=== PATIENT | female | born 1935 | race Two or more races ===

== ENCOUNTER 2021-02-09 20:56 | Inpatient (IN) | payer MEDICARE, OTHER ==
[~2021-02-09] VITALS: Ht 167.6 cm; Wt 54.0 kg
[2021-02-09] MEDS ORDERED: MORPHINE SULFATE 4 MG/1 ML DISP.SYRIN IV ONE (21:30)
[2021-02-09 21:40] LABS: HEMATOCRIT 32.5 % (31.2-41.9); MEAN CORPUSCULAR HEMOGLOBIN 24.7 uug (24.7-32.8); PLATELET COUNT (AUTO) 218 K/uL (179-408)
[2021-02-09 21:44] LABS: CREATININE 0.6 mg/dL (0.6-1.3); POTASSIUM 4.1 mmol/L (3.5-5.1)
[2021-02-09 21:49] LABS: BILIRUBIN,TOTAL 0.3 mg/dL (0.2-1.0); TOTAL PROTEIN, SERUM 7.4 g/dL (6.4-8.2)
[2021-02-09] MEDS ORDERED: MORPHINE SULFATE 4 MG/1 ML DISP.SYRIN ONE (21:53)
--- NOTE | 2021-02-09 22:00 | NUR ---
Patient in room 4a laying on gurny c/o right hip pain after mechanical fall. Patient is A/Ox3 but mostly farsi speaking. Patient denies head trauma. Swelling noted on right hip. Provide comfort and safety measures.
--- NOTE | 2021-02-09 22:11 | NUR ---
CALLED DR. CRUZ'S OFFICE, DR. CLARK.
--- NOTE | 2021-02-09 22:38 | NUR ---
Called [facility], Dr. Guerra paged.
[2021-02-09] MEDS ORDERED: ONDANSETRON 4 MG/2 ML VIAL IV PRN ×2 (23:00→23:45)
[2021-02-09] MEDS ORDERED: albuterol sulfate INH (23:20)
[2021-02-09] MEDS ORDERED: ONDA-104 PO (23:20)
[2021-02-09] MEDS ORDERED: LEVA0.6320 IH ×2 (23:20)
[2021-02-09] MEDS ORDERED: ALPR0.5T8 PO (23:20)
[2021-02-09] MEDS ORDERED: NA P133E RC (23:20)
[2021-02-09] MEDS ORDERED: METO25TA6 PO (23:20)
[2021-02-09] MEDS ORDERED: LATA7.5D OP (23:20)
[2021-02-09] MEDS ORDERED: BISA10SU61 RC (23:20)
[2021-02-09] MEDS ORDERED: HYDR-3972 PO (23:20)
[2021-02-09] MEDS ORDERED: DIPH25TA62 PO (23:20)
[2021-02-09] MEDS ORDERED: moxifloxacin RIGHTEYE (23:20)
[2021-02-09] MEDS ORDERED: OXYC-133 PO (23:20)
[2021-02-09] MEDS ORDERED: TRAM50TA2 PO (23:20)
[2021-02-09] MEDS ORDERED: ASPI81TA31 PO (23:20)
[2021-02-09] MEDS ORDERED: SERT100T PO (23:20)
[2021-02-09] MEDS ORDERED: EZET1TAB31 PO (23:20)
[2021-02-09] MEDS ORDERED: OMEP20CA15 PO (23:20)
[2021-02-09] MEDS ORDERED: LOSA50TA39 PO (23:20)
[2021-02-09 23:42] LABS: *BILIRUBIN,URIN NEGATIVE (NEGATIVE); *BLOOD, URINE 1+ (NEGATIVE); *CLARITY,URINE CLEAR (CLEAR); *COLOR,URINE YELLOW (YELLOW); *KETONES,URINE NEGATIVE (NEGATIVE); *UROBILINOGEN,URINE 0.2 E.U./dl (NORMAL); LEUKOCYTE ESTERASE ,URINE NEGATIVE (NEGATIVE); NITRITE, URINE NEGATIVE (NEGATIVE); UGLUCOSE NEGATIVE (NEGATIVE)
[2021-02-09] MEDS ORDERED: HYDROCODONE/APAP 5-325MG TABLET PO PRN (23:45)
[2021-02-09] MEDS ORDERED: MAGNESIUM HYDROXIDE 30 ML LIQUID UDC PO PRN (23:45)
[2021-02-09] MEDS ORDERED: MORPHINE SULFATE 2 MG/1 ML DISP.SYRIN IV PRN (23:45)
[2021-02-09] MEDS ORDERED: Z GUARD REMEDY PASTE 57 GM TUBE TOP PRN (23:45)
[2021-02-09] MEDS ORDERED: IV D5 1/2 NS 1000 ML 1,000 ML IV PRN (23:45)
[2021-02-09] MEDS ORDERED: ACETAMINOPHEN 325 MG TABLET PO PRN (23:45)
[2021-02-09] MEDS: MORPHINE SULFATE 2 MG/1 ML DISP.SYRIN IV PRN (23:46)
[2021-02-09 23:55] LABS: BACTERIA,URINE NONE SEEN /HPF (NONE SEEN); SQUAMOUS EPITHELIAL CELL,UR FEW /HPF (NONE SEEN); WBC,URINE 0-3 /HPF (0-3)
--- NOTE | 2021-02-10 01:30 | NUR ---
ERMD made aware of SBP in the 165 to 170.
[2021-02-10] MEDS: LOSARTAN POTASSIUM 50 MG TABLET PO SCH ×2 (01:46→08:24)
[2021-02-10] MEDS ORDERED: LOSARTAN POTASSIUM 50 MG TABLET ONE (01:49)
--- NOTE | 2021-02-10 02:18 | NUR ---
Transfered to 3rd floor Med surg via [facility].
[2021-02-10 02:30] VITALS: BP 170/77
--- NOTE | 2021-02-10 02:30 | NUR ---
admitted this 85 y.o. lady from er via [facility],alert,orientedx4, able to make needs known, no acute distress noted.admission care done, iv site on left ac patent and no signs of infiltration .repositioned for comfort.oral care rendered.skin clear.
[2021-02-10] MEDS: MORPHINE SULFATE 2 MG/1 ML DISP.SYRIN IV PRN ×2 (02:33→15:59)
--- NOTE | 2021-02-10 03:03 | NUR ---
relief afforded with morphine 2 mg iv given.requested to let her rest and sleep, getting irritable during assessment and interview process, kept npo .
[2021-02-10 04:31] VITALS: BP 188/77
--- NOTE | 2021-02-10 05:02 | NUR ---
dr vazquez to carina pt in am
[2021-02-10] MEDS: PANTOPRAZOLE SODIUM 40 MG TABLET.DR PO SCH (07:00)
[2021-02-10 07:04] LABS: MEAN CORPUSCULAR HEMOGLOBIN 25.1 uug (24.7-32.8); MEAN CORPUSCULAR VOLUME 77.3 fL (75.5-95.3); PLATELET COUNT (AUTO) 205 K/uL (179-408)
[2021-02-10 07:18] LABS: CREATININE 0.7 mg/dL (0.6-1.3); MAGNESIUM 1.7 mg/dL (1.8-2.4); PHOSPHOROUS 3.4 mg/dL (2.5-4.9)
[2021-02-10 07:28] LABS: THYROID STIMULATING HORMONE 0.676 mIU/mL (0.358-3.740)
[2021-02-10] MEDS ORDERED: METOPROLOL TARTRATE 25 MG TABLET PO SCH (09:00)
[2021-02-10] MEDS: MAGNESIUM SULFATE/D5W 100 ML IV SCH ×2 (09:04→10:08)
[2021-02-10] MEDS ORDERED: VANCOMYCIN 1000 MG VIAL ONE (11:13)
[2021-02-10] MEDS ORDERED: POLYMYXIN B SULFATE 500,000 UNITS VIAL ONE (11:13)
[2021-02-10] MEDS ORDERED: BUPIVACAINE 0.25% 30 ML VIAL ONE (11:14)
[2021-02-10] MEDS ORDERED: MIDAZOLAM HCL 2 MG/2 ML VIAL ONE (11:19)
[2021-02-10] MEDS ORDERED: FENTANYL CITRATE 250 MCG/5 ML AMPUL ONE (11:19)
[2021-02-10] MEDS ORDERED: ROCURONIUM BROMIDE 50 MG/5 ML VIAL ONE (11:20)
[2021-02-10 11:28] VITALS: BP 120/51
[2021-02-10] MEDS ORDERED: CLONIDINE-TTS 1 PATCH TD SCH (11:30)
--- NOTE | 2021-02-10 11:37 | NUR ---
pt went to or via bed for surgery in stable condition
[2021-02-10] MEDS ORDERED: PROPOFOL 200 MG/20 ML BOTTLE IV ONE (13:18)
[2021-02-10] MEDS ORDERED: LIDOCAINE-MPF 2% 5 ML VIAL IJ ONE (13:18)
[2021-02-10] MEDS ORDERED: NEOSTIGMINE METHYLSULFATE 10 MG/10 ML VIAL IV ONE (13:18)
[2021-02-10] MEDS ORDERED: SEVOFLURANE 250 ML BOTTLE IH ONE (13:18)
[2021-02-10] MEDS ORDERED: GLYCOPYRROLATE 0.2 MG/ML VIAL IJ ONE (13:18)
[2021-02-10] MEDS ORDERED: ONDANSETRON 4 MG/2 ML VIAL IV ONE (13:18)
[2021-02-10] MEDS ORDERED: CEFAZOLIN 1 G VIAL IM ONE (13:18)
[2021-02-10] MEDS ORDERED: METOCLOPRAMIDE HCL 10 MG/2 ML VIAL IV ONE (13:18)
[2021-02-10] MEDS ORDERED: POTASSIUM CHLORIDE 20 MEQ in IV D5 1/2 NS 1000 ML 1,000 ML IV PRN (14:00)
[2021-02-10] MEDS ORDERED: IV D5W-0.45% NS +20 KCL 1,000 ML IV ONE (14:02)
--- NOTE | 2021-02-10 14:37 | NUR ---
pt received back from surgery via bed in stable condition.
[2021-02-10 15:00] VITALS: BP 162/62
[2021-02-10] MEDS: CEFAZOLIN 1 G in IV DEXTROSE 5% 50 ML IV SCH (19:52)
[2021-02-10 20:34] VITALS: BP 116/51
[2021-02-10] MEDS: HYDROCODONE/APAP 5-325MG TABLET PO PRN (21:43)
[2021-02-11] MEDS: CEFAZOLIN 1 G in IV DEXTROSE 5% 50 ML IV SCH (04:01)
[2021-02-11 04:43] VITALS: BP 108/52
[2021-02-11 07:21] LABS: HEMATOCRIT 24.4 % (31.2-41.9)
--- NOTE | 2021-02-11 07:56 | NUR ---
Patient awake in bed. On 1L O2 via NC. No signs of acute distress. IV access on left AC #20 heplock. Call light within reach. Bed alarm on. Will continue to monitor.
[2021-02-11] MEDS: HYDROCODONE/APAP 5-325MG TABLET PO PRN ×2 (08:43→17:11)
[2021-02-11] MEDS ORDERED: LOSARTAN POTASSIUM 50 MG TABLET PO SCH (09:00)
[2021-02-11] MEDS ORDERED: BISACODYL 10 MG SUPP.RECT RC PRN (10:30)
[2021-02-11] MEDS ORDERED: ALPRAZOLAM 0.5 MG TABLET PO PRN (10:30)
[2021-02-11] MEDS: ENOXAPARIN SODIUM 40 MG/0.4 ML DISP.SYRIN SQ SCH (11:14)
[2021-02-11 11:41] VITALS: BP_SYST 112; BP_SYST 130; BP_DIAS 49; BP_DIAS 70
[2021-02-11 16:48] VITALS: BP 115/51
[2021-02-11 20:29] VITALS: BP 113/57
[2021-02-11] MEDS: LATANOPROST OPHT DROP 2.5 ML BOTTLE OP SCH (21:33)
[2021-02-11] MEDS: diphenhydrAMINE 25 MG CAP PO PRN (22:43)
[2021-02-12 04:00] VITALS: BP 140/64
--- NOTE | 2021-02-12 06:45 | NUR ---
Shift End Report: VS stable. No s/s of respiratory distress. Tolerated O2 @ 1L/min. No complaint presented all night. Continue current plan of care. Slept well.
[2021-02-12 07:16] LABS: MEAN CORPUSCULAR VOLUME 75.8 fL (75.5-95.3); PLATELET COUNT (AUTO) 113 K/uL (179-408)
[2021-02-12 07:28] LABS: BILIRUBIN,TOTAL 0.4 mg/dL (0.2-1.0); CREATININE 0.6 mg/dL (0.6-1.3); MAGNESIUM 1.7 mg/dL (1.8-2.4); POTASSIUM 4.5 mmol/L (3.5-5.1); TOTAL PROTEIN, SERUM 5.8 g/dL (6.4-8.2)
[2021-02-12] MEDS: ASPIRIN 81 MG TAB.CHEW PO SCH (08:21)
[2021-02-12] MEDS: SERTRALINE HCL 100 MG TABLET PO SCH (08:21)
[2021-02-12] MEDS: ENOXAPARIN SODIUM 40 MG/0.4 ML DISP.SYRIN SQ SCH (08:22)
[2021-02-12] MEDS: MAGNESIUM OXIDE 400 MG TABLET PO ONE ×2 (09:45→12:36)
[2021-02-12 11:36] VITALS: BP 141/80
[2021-02-12] MEDS ORDERED: ACETAMINOPHEN 325 MG TABLET PO PRN (12:30)
[2021-02-12 15:25] VITALS: BP 144/62
--- NOTE | 2021-02-12 18:34 | NUR ---
End of shift note Patient refuse blood transfusion today. MD [place] and family agree to repeat CBC tomorrow and do transfusion. Patient refuse medication in the morning. Able to take replacement magnesium 800mg tablet for Mg 1.7. will continue monitor
[2021-02-12 20:04] VITALS: BP 122/60
--- NOTE | 2021-02-12 20:10 | NUR ---
RECEIVED PATIENT IN BED ALERT AND AWAKE WITH 1 L/M OF O2 VIA NC. CALL LIGHT WITHIN REACH. WILL CONTINUE TO MONITOR.
[2021-02-12] MEDS: LATANOPROST OPHT DROP 2.5 ML BOTTLE OP SCH (21:11)
--- NOTE | 2021-02-12 23:29 | NUR ---
LAB AND BLOOD BANK OFFERED TO DRAW TYPE AND SCREEN AGAIN BUT PATIENT REFUSED. SHE AGREED TO ALLOW THE DRAW IN AM. TYPE AND SCREEN RESCHEDULE FOR AM.
[2021-02-13] VITALS (10 sets, daily range): BP systolic 100–155; BP diastolic 55–79
[2021-02-13 07:13] LABS: MEAN CORPUSCULAR HEMOGLOBIN 24.7 uug (24.7-32.8); MEAN CORPUSCULAR VOLUME 76.1 fL (75.5-95.3); PLATELET COUNT (AUTO) 143 K/uL (179-408)
[2021-02-13 07:14] LABS: CARBON DIOXIDE 28 mmol/L (21-32); CHLORIDE 96 mmol/L (98-107); CREATININE 0.5 mg/dL (0.6-1.3); GLUCOSE 104 mg/dL (74-106); MAGNESIUM 1.8 mg/dL (1.8-2.4); PHOSPHOROUS 3.1 mg/dL (2.5-4.9); POTASSIUM 4.2 mmol/L (3.5-5.1); UREA NITROGEN, BLOOD 8 mg/dL (7-18)
[2021-02-13 07:17] LABS: HEMATOCRIT 20.9 % (31.2-41.9)
[2021-02-13] MEDS: ENOXAPARIN SODIUM 40 MG/0.4 ML DISP.SYRIN SQ SCH (08:06)
[2021-02-13] MEDS: SERTRALINE HCL 100 MG TABLET PO SCH (08:06)
[2021-02-13] MEDS: ASPIRIN 81 MG TAB.CHEW PO SCH (08:06)
[2021-02-13] MEDS: HYDROCODONE/APAP 5-325MG TABLET PO PRN ×2 (14:25→20:13)
[2021-02-13 14:41] LABS: EOSINOPHILS % (MANUAL) 2 % (0-8); LYMPHOCYTES % (MANUAL) 12 % (20-40); MONOCYTES % (MANUAL) 7 % (2-10); NEUTROPHILS % (MANUAL) 79 % (42-75)
[2021-02-13] MEDS: LATANOPROST OPHT DROP 2.5 ML BOTTLE OP SCH (20:13)
--- NOTE | 2021-02-13 20:15 | NUR ---
RECEIVED PATIENT AWAKE IN BED. A/O X3. FARSI SPEAKING WITH MINIMAL [place], BUT ABLE TO MAKE NEEDS KNOWN. PATIENT VERBALIZED SHE IS AWARE OF BLOOD TRANSFUSION. CONSENT SIGNED IN CHART. VS WNL. PATIENT C/O PAIN IN RIGHT HIP, RADIATING TO LEFT HIP. PATIENT GIVEN NORCO 1 TAB PO PRN FOR PAIN. ICE APPLIED FOR ADDITIONAL PAIN DISCOMFORT. DRESSING NOTED TO RIGHT HIP, C/D/I. CALL LIGHT IN REACH. ALL NEEDS ATTENDED. WILL CONTINUE TO MONITOR AND ASSESS.
--- NOTE | 2021-02-13 20:30 | NUR ---
1 UNIT OF BLOOD STARTED. INFUSING TO RIGHT FA #22 GAUGE. VS WNL. AFEBRILE. CALL LIGHT IN REACH. ALL NEEDS ATTENDED. WILL CONTINUE TO MONITOR AND ASSESS.
--- NOTE | 2021-02-13 20:46 | NUR ---
NO TRANSFUSION REACTION NOTED. INFUSING WELL. PATIENT AWAKE IN BED, WATCHING TV. NO SOB NOTED OR C/O. WILL CONTINUE TO MONITOR AND ASSESS. CALL LIGHT IN REACH.
--- NOTE | 2021-02-13 23:36 | NUR ---
BLOOD TRANSFUSION COMPLETED. VS WNL. NO RESP. DISTRESS NOTED. INFUSED WELL. NO REACTION NOTED. WILL CONTINUE TO MONITOR AND ASSESS.
[2021-02-14 05:37] VITALS: BP 155/66
[2021-02-14 06:37] LABS: HEMATOCRIT 24.8 % (31.2-41.9); PLATELET COUNT (AUTO) 168 K/uL (179-408)
[2021-02-14 06:58] LABS: CREATININE 0.6 mg/dL (0.6-1.3); MAGNESIUM 1.9 mg/dL (1.8-2.4); PHOSPHOROUS 3.8 mg/dL (2.5-4.9); POTASSIUM 4.1 mmol/L (3.5-5.1); URIC ACID 2.3 mg/dL (2.6-6.0)
--- NOTE | 2021-02-14 07:15 | NUR ---
PATIENT IN BED SLEEPING IN STABLE CONDITION. NO S/S OF ANY SOB, PAIN OR DISCOMFORT NOTED AT THIS TIME, ROBERTS CATHETER DRAINING WELL. CALL LIGHT AND BELONGINGS WITHIN REACH WILL CONTINUE TO MONITOR.
[2021-02-14 07:27] LABS: THYROID STIMULATING HORMONE 1.083 mIU/mL (0.358-3.740)
[2021-02-14] MEDS: ENOXAPARIN SODIUM 40 MG/0.4 ML DISP.SYRIN SQ SCH (08:39)
[2021-02-14] MEDS: ASPIRIN 81 MG TAB.CHEW PO SCH (08:39)
[2021-02-14] MEDS: SERTRALINE HCL 100 MG TABLET PO SCH (08:39)
[2021-02-14] MEDS: HYDROCODONE/APAP 5-325MG TABLET PO PRN ×2 (09:29→16:10)
[2021-02-14 11:36] VITALS: BP 135/68
[2021-02-14] MEDS: MORPHINE SULFATE 2 MG/1 ML DISP.SYRIN IV PRN (13:01)
[2021-02-14 15:35] VITALS: BP 119/41
[2021-02-14] MEDS: ENSURE ENLIVE (VAN) 240 ML LIQUID PO SCH (16:13)
--- NOTE | 2021-02-14 18:20 | NUR ---
patient in bed awake and alert, HOB elevated. no complains of any SOB, pain or discomfort at this time. ramirez catheter draining well. IV flushed, patent and intact. call light and belongings within reach. will report to oncoming shift.
--- NOTE | 2021-02-14 19:45 | NUR ---
PATIENT AWAKE IN BED. C/O ITCHINESS. PATIENT GIVEN BENADRYL 25MG PO PRN. VS WNL. H/L INTACT AND PATENT, NOTED TO RIGHT FA #22 GAUGE. PATIENT REPOSITIONED FOR COMFORT AND PRESSURE RELIEF. C/O PAIN WHEN MOVED, BUT DENIES ANY NEED FOR PAIN MEDICATION AT THIS TIME. NO RESP. DISTRESS NOTED. BED ALARM ON. CALL LIGHT IN REACH. ALL NEEDS ATTENDED. WILL CONTINUE TO MONITOR AND ASSESS.
[2021-02-14] MEDS: diphenhydrAMINE 25 MG CAP PO PRN (19:48)
[2021-02-14] MEDS: LATANOPROST OPHT DROP 2.5 ML BOTTLE OP SCH (20:12)
[2021-02-14 21:03] VITALS: BP 107/47
[2021-02-15 04:21] VITALS: BP 145/59
[2021-02-15] MEDS: HYDROCODONE/APAP 5-325MG TABLET PO PRN (06:33)
[2021-02-15 07:38] LABS: HEMATOCRIT 24.1 % (31.2-41.9); MEAN CORPUSCULAR VOLUME 76.2 fL (75.5-95.3); PLATELET COUNT (AUTO) 198 K/uL (179-408)
[2021-02-15 07:51] LABS: CARBON DIOXIDE 31 mmol/L (21-32); CHLORIDE 98 mmol/L (98-107); CREATININE 0.5 mg/dL (0.6-1.3); GLUCOSE 94 mg/dL (74-106); MAGNESIUM 1.7 mg/dL (1.8-2.4); PHOSPHOROUS 3.8 mg/dL (2.5-4.9); POTASSIUM 4.2 mmol/L (3.5-5.1); UREA NITROGEN, BLOOD 14 mg/dL (7-18)
[2021-02-15] MEDS: ENSURE ENLIVE (VAN) 240 ML LIQUID PO SCH (08:20)
[2021-02-15] MEDS: ASPIRIN 81 MG TAB.CHEW PO SCH (08:20)
[2021-02-15] MEDS: SERTRALINE HCL 100 MG TABLET PO SCH (08:20)
[2021-02-15] MEDS: ENOXAPARIN SODIUM 40 MG/0.4 ML DISP.SYRIN SQ SCH (08:22)
[2021-02-15 12:00] VITALS: BP 116/53
[2021-02-15] MEDS: MAGNESIUM OXIDE 400 MG TABLET PO SCH ×2 (12:05→16:34)
[2021-02-15] MEDS ORDERED: ENOX40DI SQ (15:30)
[2021-02-15 16:09] VITALS: BP 112/41
--- NOTE | 2021-02-15 17:19 | NUR ---
dc orders received noted and carried out,dc instruction and rn report given to the [facility] .pt family notified about the dc ,dc heplock per md orders.pt left the facility via ambulances in stable condition
== END 2021-02-15 17:36 | DRG 481 ==
LOC: ER 21:04 → MERGE 02-10 01:53 → MEDSURG3 02-10 01:53
PROVIDERS: ADMIT Internal Medicine; ATTEND Nurse Practitioner Acute Care
PROC: 0QS606Z Reposition Right Upper Femur with Intramedullary Internal Fixation Device, Open Approach (ICD-10-PCS; principal; 2021-02-10)
PROC: 30233N1 Transfusion of Nonautologous Red Blood Cells into Peripheral Vein, Percutaneous Approach (ICD-10-PCS; 2021-02-13)
DX: M80.051A Age-related osteoporosis with current pathological fracture, right femur, initial encounter for fracture (principal); D68.59 Other primary thrombophilia; E87.1 Hypo-osmolality and hyponatremia; W18.30XA Fall on same level, unspecified, initial encounter; Y92.129 Unspecified place in nursing home as the place of occurrence of the external cause; E78.5 Hyperlipidemia, unspecified; Z74.09 Other reduced mobility; I10 Essential (primary) hypertension; I25.10 Atherosclerotic heart disease of native coronary artery without angina pectoris; E86.1 Hypovolemia; D50.9 Iron deficiency anemia, unspecified; Z20.822 Contact with and (suspected) exposure to COVID-19; M19.90 Unspecified osteoarthritis, unspecified site; K21.9 Gastro-esophageal reflux disease without esophagitis; F32.9 Major depressive disorder, single episode, unspecified; D69.59 Other secondary thrombocytopenia; M80.88XA Other osteoporosis with current pathological fracture, vertebra(e), initial encounter for fracture
CPT/HCPCS: 36415; 51702; 70030-TC; 71045; 72170; 73502; 73503; 83550; 83735; 83935; 84100; 84300; 84443; 84550; 85018; 85025; 86850; 86900; 86901; 86920; 93005; 93307; 97161; A4663; A6209; C1713; G0378; J0690; J1650; J2250; J2270; J2405; J2765; J3010; J3370; J3475; J3480; J3490; J7050; J7060; P9016; P9021; Q0163

== ENCOUNTER 2021-07-09 16:46 | Inpatient (IN) | payer MEDICARE, OTHER ==
[~2021-07-09] VITALS: Ht 162.6 cm; Wt 59.0 kg
[~2021-07-09 16:46] MED LIST: ALPR0.5T8 PO; ASPI81TA31 PO; BISA10SU61 RC; DIPH25TA62 PO; ENOX40DI SQ; EZET1TAB31 PO; HYDR-3972 PO; LATA7.5D OP; LEVA0.6320 IH; LOSA50TA39 PO; METO25TA6 PO; NA P133E RC; OMEP20CA15 PO; ONDA-104 PO; OXYC-133 PO; SERT100T PO; TRAM50TA2 PO
[2021-07-09] MEDS ORDERED: HYDROCODONE/APAP 5-325MG TABLET PO ONE (17:30)
[2021-07-09] MEDS ORDERED: HYDROCODONE/APAP 5-325MG TABLET ONE (17:50)
[2021-07-09 18:10] LABS: *BILIRUBIN,URIN NEGATIVE (NEGATIVE); *CLARITY,URINE CLEAR (CLEAR); *COLOR,URINE YELLOW (YELLOW); *KETONES,URINE NEGATIVE (NEGATIVE); *UROBILINOGEN,URINE 0.2 E.U./dl (NORMAL); LEUKOCYTE ESTERASE ,URINE 1+ (NEGATIVE); NITRITE, URINE POSITIVE (NEGATIVE); UGLUCOSE NEGATIVE (NEGATIVE)
[2021-07-09 18:12] LABS: *BLOOD, URINE TRACE (NEGATIVE)
[2021-07-09 18:12] LABS: HEMATOCRIT 32.6 % (31.2-41.9); MEAN CORPUSCULAR HEMOGLOBIN 27.1 uug (24.7-32.8); MEAN CORPUSCULAR VOLUME 81.8 fL (75.5-95.3); PLATELET COUNT (AUTO) 248 K/uL (179-408)
[2021-07-09 18:15] LABS: CARBON DIOXIDE 31 mmol/L (21-32); CHLORIDE 97 mmol/L (98-107); CREATININE 0.7 mg/dL (0.6-1.3); GLUCOSE 104 mg/dL (74-106); POTASSIUM 5.1 mmol/L (3.5-5.1); UREA NITROGEN, BLOOD 30 mg/dL (7-18)
[2021-07-09 18:25] LABS: ALANINE AMINOTRANSFERASE 19 U/L (14-59); ALKALINE PHOSPHATASE 123 U/L (50-136); ASPARTATE AMINOTRANSFERASE 15 U/L (15-37); BILIRUBIN,DIRECT < 0.1 mg/dL (0.0-0.2); BILIRUBIN,TOTAL 0.3 mg/dL (0.2-1.0); TOTAL PROTEIN, SERUM 7.1 g/dL (6.4-8.2)
[2021-07-09] MEDS ORDERED: ONDANSETRON 4 MG/2 ML VIAL IV PRN (19:15)
[2021-07-09] MEDS ORDERED: Z GUARD REMEDY PASTE 57 GM TUBE TOP PRN (19:15)
[2021-07-09] MEDS ORDERED: MAGNESIUM HYDROXIDE 30 ML LIQUID UDC PO PRN (19:15)
[2021-07-09 19:21] LABS: RBC,URINE NONE SEEN /HPF (0-3); SQUAMOUS EPITHELIAL CELL,UR FEW /HPF (NONE SEEN); WBC,URINE 0-3 /HPF (0-3)
[2021-07-09 19:22] LABS: BACTERIA,URINE FEW /HPF (NONE SEEN)
--- NOTE | 2021-07-09 19:27 | NUR ---
Report received on pt, she denies pain or sob.
[2021-07-09] MEDS ORDERED: diphenhydrAMINE 50 MG/1 ML VIAL IV ONE (22:45)
[2021-07-09] MEDS ORDERED: diphenhydrAMINE 50 MG/1 ML VIAL ONE (22:52)
--- NOTE | 2021-07-09 23:49 | NUR ---
Report given to Radha SANTANA. Pt to go to room 314
--- NOTE | 2021-07-10 | NUR ---
Assisted pt to the bathroom. Pt used walker with steady gait.
[2021-07-10 00:15] VITALS: BP 156/62
--- NOTE | 2021-07-10 00:27 | NUR ---
Pt transported via gurney with all belongings to room 314. Nurse ESTHER Garcia to receive patient.
--- NOTE | 2021-07-10 00:30 | NUR ---
RECEIVED PATIENT VIA GURNEY FROM ER. PATIENT IS A/O X3. FARSI SPEAKING BUT ABLE TO MAKE NEEDS KNOWN AND SPEAKS MINIMAL BELARUSIAN. VS WNL. C/O GENERALIZED DISCOMFORT FROM FALL AT HOME EARLIER. NO SOB NOTED. H/L INTACT AND PATENT, NOTED TO LEFT AC #20 GAUGE. ORIENTED PATIENT TO ROOM AND CALL LIGHT. CALL LIGHT IN REACH. ALL NEEDS ATTENDED. WILL CONTINUE TO MONITOR AND ASSESS.
--- NOTE | 2021-07-10 00:35 | NUR ---
PATIENT PLACED ON TELE ORDERED, SB IN THE 50'S.
[2021-07-10] MEDS: HYDROCODONE/APAP 5-325MG TABLET PO PRN ×3 (01:57→20:10)
--- NOTE | 2021-07-10 02:00 | NUR ---
PATIENT AWAKE IN BED, ASSISTED TO BATHROOM. PATIENT REFUSING FOR IV HEPLOCK. PATIENT INFORMED ON IMPORTANCE OF HAVING HEPLOCK, PATIENT STILL REFUSED. CARPENTER APPRENTICE NOTIFIED. WILL CONTINUE TO MONITOR AND ASSESS.
[2021-07-10 04:00] VITALS: BP 154/60
[2021-07-10] MEDS: PANTOPRAZOLE SODIUM 40 MG TABLET.DR PO SCH (06:05)
[2021-07-10 06:51] LABS: HEMATOCRIT 30.7 % (31.2-41.9); MEAN CORPUSCULAR HEMOGLOBIN 26.8 uug (24.7-32.8); MEAN CORPUSCULAR VOLUME 81.5 fL (75.5-95.3); PLATELET COUNT (AUTO) 219 K/uL (179-408)
[2021-07-10 07:08] LABS: CREATININE 0.6 mg/dL (0.6-1.3); MAGNESIUM 2.1 mg/dL (1.8-2.4); PHOSPHOROUS 4.3 mg/dL (2.5-4.9); POTASSIUM 4.1 mmol/L (3.5-5.1)
[2021-07-10 07:16] LABS: THYROID STIMULATING HORMONE 1.684 mIU/mL (0.358-3.740)
--- NOTE | 2021-07-10 07:20 | NUR ---
Received patient in bed. AOx3. On RA. No signs of acute distress. Patient denies pain/ discomfort. Bed alarm on. Call light within reach. Will continue to monitor.
[2021-07-10] MEDS ORDERED: ALPR1TAB7 PO (11:46)
[2021-07-10] MEDS ORDERED: LOSA25TA27 PO (11:46)
[2021-07-10] MEDS ORDERED: PRED5DRO16 RIGHTEYE (11:46)
[2021-07-10] MEDS ORDERED: TRAV5DRO EACHEYE (11:46)
[2021-07-10] MEDS ORDERED: SERT50TA PO (11:46)
[2021-07-10 12:00] VITALS: BP 153/65
[2021-07-10] MEDS ORDERED: TRAVOPROST OP SCH (12:15)
[2021-07-10 16:04] VITALS: BP 157/68
[2021-07-10] MEDS: prednisoLONE ACET 1% OPHT DROP 5 ML BOTTLE RIGHTEYE SCH ×2 (16:41→20:11)
[2021-07-10] MEDS: SERTRALINE HCL 50 MG TABLET PO SCH (16:42)
--- NOTE | 2021-07-10 18:17 | NUR ---
Patient resting in bed. AOx3-4. On room air. No signs of acute distress. Patient complained of back pain, [place] PO PRN given and patient expressed relief. Patient refused insertion of IV despite explanation of the need of the IV access and risks of refusal and patient still refused. Needs anticipated and met. Bed alarm on. Call light within reach. Will endorse to incoming shift for continuity of care.
--- NOTE | 2021-07-10 19:30 | NUR ---
Patient is sitting up on edge of bed. She is Farsi speaking. Able to make simple needs known, can speak minimal Lao. C/o pain 8/10 to right leg and constipation. States she has not had a BM for 4 days. On RA, No SOB. Patient assisted to the bathroom. Able to ambulate using FWW with one person assist. Safety measures initiated. Call light within reach.
[2021-07-10 20:03] VITALS: BP 152/72
[2021-07-10] MEDS: LATANOPROST OPHT DROP 2.5 ML BOTTLE EACHEYE SCH (20:11)
[2021-07-10] MEDS: ACETAMINOPHEN 325 MG TABLET PO PRN (22:54)
[2021-07-11] VITALS (7 sets, daily range): BP systolic 135–159; BP diastolic 57–91
[2021-07-11] MEDS: prednisoLONE ACET 1% OPHT DROP 5 ML BOTTLE RIGHTEYE SCH ×6 (04:49→20:12)
[2021-07-11] MEDS: HYDROCODONE/APAP 5-325MG TABLET PO PRN ×4 (04:49→23:59)
[2021-07-11] MEDS: PANTOPRAZOLE SODIUM 40 MG TABLET.DR PO SCH (06:33)
--- NOTE | 2021-07-11 06:44 | NUR ---
Slept well this shift. Generalized pain still reported. on RA, no SOB. On telemetry, continues with NSR with 1st degree av block. Treatment provided to Sacral pressure sore, tolerates treatment well. Still noted with swelling to BUE, more prominent to left. AV fistula, intact. Patient and request to be sent to a SNF when ready to DC. State is unable to provide appropriate care for her in the home. Will endorse to day shift. Safety measures continued, call light within reach. Addendum: 07/11/21 at 0648 by ANABELLA PIPER RN WRONG PATIENT
--- NOTE | 2021-07-11 06:46 | NUR ---
Slept intermittently this shift. Continues to have pain to right leg, 02/24 [place] PO provided as ordered. Patient expresses pain relief post [place] administration. Able to have one BM this shift, states she still feels "full". Noted with anxiety during night, asking staff to sleep in her room with her not wanting to be alone. Emotional support and active listening provided and effective. On RA, no SOB. On telemetry, NSR. Safety measures continued, call light within reach.
[2021-07-11] MEDS: SERTRALINE HCL 50 MG TABLET PO SCH ×2 (08:23→16:31)
[2021-07-11] MEDS: LOSARTAN POTASSIUM 25 MG TABLET PO SCH (08:29)
--- NOTE | 2021-07-11 13:51 | NUR ---
Pt is a/o x 3, Farsi speaking. Pt complains of right sided leg pain, provided PRN medication. Pt has unsteady gait, need assist from bed to wheelchair to use the restroom; had 1x BM today. Pt refused morning labs. Pt has a visitor at bedside, call light within reach, comfort measures provided, will continue to monitor.
--- NOTE | 2021-07-11 19:15 | NUR ---
Received patient lying in bed. AAOX4, farsi speaking. Patient denies acute distress. Able to ambulate to the bathroom, however, requires assistance. Safety precautions and comfort measures initiated. Bed in locked, call light button and frequently used items within reach. Will continue to monitor.
[2021-07-11] MEDS: LATANOPROST OPHT DROP 2.5 ML BOTTLE EACHEYE SCH (20:15)
[2021-07-11] MEDS: ACETAMINOPHEN 325 MG TABLET PO PRN (22:29)
[2021-07-12] MEDS: prednisoLONE ACET 1% OPHT DROP 5 ML BOTTLE RIGHTEYE SCH ×6 (03:52→20:00)
[2021-07-12 03:57] VITALS: BP 151/63
[2021-07-12] MEDS: PANTOPRAZOLE SODIUM 40 MG TABLET.DR PO SCH (06:13)
[2021-07-12] MEDS: HYDROCODONE/APAP 5-325MG TABLET PO PRN ×3 (06:13→21:20)
--- NOTE | 2021-07-12 06:33 | NUR ---
Patient slept through the night. All due medications were given as ordered and tolerated well. Patient complained of having a mild headache and pain of 8-10 on her lower extremities, PRN medications were given and tolerated well. No acute distress noted at this time. Needs were addressed and met. Safety precautions and comfort measures maintained. Will endorse to day shift.
[2021-07-12] MEDS: SERTRALINE HCL 50 MG TABLET PO SCH ×2 (08:55→16:17)
[2021-07-12] MEDS: LOSARTAN POTASSIUM 25 MG TABLET PO SCH (08:59)
[2021-07-12 12:00] VITALS: BP 158/73
[2021-07-12] MEDS ORDERED: HYDROCODONE/APAP 5-325MG TABLET PO PRN ×2 (12:15→12:30)
--- NOTE | 2021-07-12 12:20 | NUR ---
Pt is in wheelchair at this time. [id number] of pain or acute distress. Comfort measures provided. Pt plan is to discharge, pending approval for rehab unit or placement in SNF. pt is compliant with medications and cooperative with care. vitals within normal limits, saturating 98% on room air, no temperature. Call light within reach. Will continue to monitor pt.
[2021-07-12 16:00] VITALS: BP 105/63
[2021-07-12 20:21] VITALS: BP 130/74
[2021-07-12] MEDS: LATANOPROST OPHT DROP 2.5 ML BOTTLE EACHEYE SCH (21:00)
[2021-07-13] MEDS: prednisoLONE ACET 1% OPHT DROP 5 ML BOTTLE RIGHTEYE SCH ×5 (04:00→16:36)
[2021-07-13 04:45] VITALS: BP 134/66
--- NOTE | 2021-07-13 05:55 | NUR ---
Received to care, initially up in wheel chair,pleasant, requesting her eye drops, and pain medication for her back pain. This commercial real estate underwriter came to her room, at 2099, with her eye drops, and PRN [place], for pain. When she found out the [place] was not due again until 2116, she became angry, yelling, and stating, get out of here. I dont want anything. She was encouraged to take her eye drops first, and that by the time she was done, it would be time again for the [place]. This commercial real estate underwriter spent several minutes trying to convince her. So long, in fact, that her [place] was already due, but she still refused everything. This commercial real estate underwriter saved the [place] for several hours, but she still did not want it, so it was returned to the pharmacy. She ended up sleeping fairly well. and continues to sleep, now. No distress, noted.
[2021-07-13] MEDS: PANTOPRAZOLE SODIUM 40 MG TABLET.DR PO SCH (06:29)
--- NOTE | 2021-07-13 07:06 | NUR ---
Pt refused AM lab draw, including stat PT/PTTT
--- NOTE | 2021-07-13 08:00 | NUR ---
Fall precaution implemented. Pt has good appetite for breakfast. Pt sitting in chair. Call light is within reach.
[2021-07-13] MEDS ORDERED: LIDOCAINE 5% PATCH TD SCH (09:00)
[2021-07-13] MEDS: LOSARTAN POTASSIUM 25 MG TABLET PO SCH (09:12)
[2021-07-13] MEDS: SERTRALINE HCL 50 MG TABLET PO SCH ×2 (09:13→16:36)
[2021-07-13 11:30] VITALS: BP 129/65
--- NOTE | 2021-07-13 12:00 | NUR ---
Pt continues to refuse blood draw. Explained to patient purpose of the test that the dr ordered but pt continues to refuse blood draw. PT tolerated physical therapy. Pt on wheelchair denies any c/o pain.
[2021-07-13 16:25] VITALS: BP 146/69
--- NOTE | 2021-07-13 18:01 | NUR ---
Spoke with JESSICA Trujillo. Discharge instructions given. Pt will be transferred to ARU here at [facility]. Skin dry and intact.
[2021-07-13] MEDS ORDERED: PANT40TA2 PO (20:39)
[2021-07-13] MEDS ORDERED: ACET325C7 PO (20:42)
[2021-07-13] MEDS ORDERED: MAGN400O6 PO (20:43)
[2021-07-13] MEDS ORDERED: LIDO30AD10 TD (20:48)
[2021-07-13] MEDS ORDERED: HYDR-4209 PO ×2 (20:52→20:53)
[2021-07-14] MEDS ORDERED: ALPR1TAB7 PO (00:03)
[2021-07-14] MEDS ORDERED: LATA2.5D15 EACHEYE (11:24)
== END 2021-07-13 18:50 | DRG 74 ==
LOC: ER 16:49 → EDBD 16:49 → TELE3 07-10 → MERGE 07-10 → MEDSURG3 07-11 12:54
PROVIDERS: ADMIT Student in an Organized Health Care Education/Training Program; ATTEND Student in an Organized Health Care Education/Training Program
DX: G90.8 Other disorders of autonomic nervous system (principal); E87.1 Hypo-osmolality and hyponatremia; E86.0 Dehydration; D64.9 Anemia, unspecified; F32.A Depression, unspecified; F41.9 Anxiety disorder, unspecified; G89.29 Other chronic pain; H40.9 Unspecified glaucoma; W18.30XA Fall on same level, unspecified, initial encounter; I10 Essential (primary) hypertension; Z74.09 Other reduced mobility; Y93.9 Activity, unspecified; Y92.009 Unspecified place in unspecified non-institutional (private) residence as the place of occurrence of the external cause; R29.6 Repeated falls; Z20.822 Contact with and (suspected) exposure to COVID-19; M43.12 Spondylolisthesis, cervical region; M48.02 Spinal stenosis, cervical region; M50.21 Other cervical disc displacement, high cervical region; M54.9 Dorsalgia, unspecified
CPT/HCPCS: 36415; 70030-TC; 70450; 71045; 72125; 72131; 72170; 73630; 83735; 84100; 84443; 85025; 85730; 87086; 93005; 93307; 97161; A4663; G0378; J1200; J2650

== ENCOUNTER 2021-07-13 12:41 | Inpatient (IN) | payer MEDICARE, OTHER ==
[~2021-07-13] VITALS: Ht 162.6 cm; Wt 59.4 kg
[~2021-07-13 12:41] MED LIST changes: +ALPR1TAB7 PO; +LOSA25TA27 PO; +PRED5DRO16 RIGHTEYE; +SERT50TA PO; +TRAV5DRO EACHEYE
[2021-07-13] MEDS ORDERED: PANT40TA2 PO (20:39)
[2021-07-13 20:40] VITALS: BP 152/74
[2021-07-13] MEDS ORDERED: ACET325C7 PO (20:42)
[2021-07-13] MEDS ORDERED: MAGN400O6 PO (20:43)
[2021-07-13] MEDS ORDERED: LIDO30AD10 TD (20:48)
[2021-07-13] MEDS ORDERED: HYDR-4209 PO ×2 (20:52→20:53)
[2021-07-14] MEDS ORDERED: ALPR1TAB7 PO (00:03)
[2021-07-14 04:45] VITALS: BP 157/68
--- NOTE | 2021-07-14 05:12 | NUR ---
pt was admitted last night, in the service of ARU, from MED Surg, rm 314. Lora Harrington, and JASPREET Brich were both notified of the admission. Pt was received lying in bed, calm and cooperative, and slept well, throughout the night. No distress noted.
[2021-07-14] MEDS ORDERED: MAGNESIUM HYDROXIDE 30 ML LIQUID UDC PO PRN (06:00)
[2021-07-14] MEDS ORDERED: Medication Not On Formulary EA (Acetaminophen (Tylenol) 650 MG) PO PRN (06:00)
[2021-07-14] MEDS ORDERED: HYDROCODONE/APAP 5-325MG TABLET PO SCH ×2 (06:00)
[2021-07-14] MEDS ORDERED: LIDOCAINE 5% PATCH TD PRN (06:00)
[2021-07-14] MEDS: PANTOPRAZOLE SODIUM 40 MG TABLET.DR PO SCH (07:08)
[2021-07-14 07:55] VITALS: BP 156/65
[2021-07-14] MEDS ORDERED: LIDOCAINE 5% PATCH TD SCH ×2 (09:00)
[2021-07-14] MEDS: prednisoLONE ACET 1% OPHT DROP 5 ML BOTTLE RIGHTEYE SCH ×4 (10:24→21:01)
[2021-07-14] MEDS: LIDOCAINE 5% PATCH TD SCH (10:25)
[2021-07-14] MEDS: LOSARTAN POTASSIUM 25 MG TABLET PO SCH (10:26)
[2021-07-14] MEDS: HYDROCODONE/APAP 5-325MG TABLET PO PRN ×2 (11:20→18:56)
[2021-07-14] MEDS ORDERED: LATA2.5D15 EACHEYE (11:24)
[2021-07-14] MEDS ORDERED: SERTRALINE HCL 100 MG TABLET PO SCH (11:45)
[2021-07-14] MEDS ORDERED: SERTRALINE HCL 50 MG TABLET PO SCH (11:45)
[2021-07-14] MEDS: SERTRALINE HCL 100 MG TABLET PO SCH ×2 (12:18→21:04)
[2021-07-14 16:00] VITALS: BP 130/61
[2021-07-14] MEDS ORDERED: MIRALAX 17 GM POWD.PACK PO PRN (19:45)
[2021-07-14 20:00] VITALS: BP 113/47
[2021-07-14] MEDS: DOCUSATE SODIUM 100 MG CAPSULE PO SCH (21:00)
[2021-07-14] MEDS ORDERED: LATANOPROST OPHT DROP 2.5 ML BOTTLE EACHEYE SCH (21:00)
[2021-07-14] MEDS: LATANOPROST OPHT DROP 2.5 ML BOTTLE EACHEYE SCH (21:01)
[2021-07-15] MEDS: HYDROCODONE/APAP 5-325MG TABLET PO PRN ×3 (02:17→18:53)
--- NOTE | 2021-07-15 02:17 | NUR ---
PATIENT STATED SHE HAS A LOT OF PAIN SO I GAVE HER THE OPTION OF ONE OR TWO NORCOS AND SHE WANTED TWO GIVEN ORDERED MADE COMFORTABLE WILL CONTINUE TO OBSERVE.
[2021-07-15] MEDS: prednisoLONE ACET 1% OPHT DROP 5 ML BOTTLE RIGHTEYE SCH ×6 (02:18→20:44)
[2021-07-15 04:00] VITALS: BP 154/71
--- NOTE | 2021-07-15 06:30 | NUR ---
PATIENT RESTED WELL AFTER TAKING HER NORCO JUST C/O FEELS COLD WARM BLANKET PROVIDED AT THIS TIME.
[2021-07-15] MEDS: PANTOPRAZOLE SODIUM 40 MG TABLET.DR PO SCH (06:36)
[2021-07-15 08:00] VITALS: BP 156/87
[2021-07-15] MEDS: LOSARTAN POTASSIUM 25 MG TABLET PO SCH (08:18)
[2021-07-15] MEDS: SERTRALINE HCL 100 MG TABLET PO SCH ×2 (08:19→17:00)
[2021-07-15] MEDS: LIDOCAINE 5% PATCH TD SCH (08:21)
--- NOTE | 2021-07-15 08:50 | NUR ---
Received AAOx3 resting in bed in bed,. Assisted to the bathroom as needed. PRN [place] was given as order, for right hip pain , with good results. Up in W/C ambulating with PT assist by FWW. No acute distress noted, all schedule meds given as order
[2021-07-15] MEDS: PREGABALIN 25 MG CAPSULE PO SCH ×2 (14:14→22:23)
[2021-07-15] MEDS: HYDROCODONE/APAP 10-325 MG TABLET PO SCH (14:14)
--- NOTE | 2021-07-15 14:30 | NUR ---
PT seen and visited by DR Harrington with new orders for [place] 10 /325 BID at 0800 and 1300 schedule to help for pain before PT ,Celebrex 200 mg daily at 0900 and Lyrica 25 mg Q8 order noted and carry out.
[2021-07-15 16:00] VITALS: BP 132/50
[2021-07-15 20:00] VITALS: BP 137/44
[2021-07-15] MEDS: DOCUSATE SODIUM 100 MG CAPSULE PO SCH (20:45)
[2021-07-15] MEDS: ACETAMINOPHEN 325 MG TABLET PO PRN (20:45)
[2021-07-15] MEDS: LATANOPROST OPHT DROP 2.5 ML BOTTLE EACHEYE SCH (22:22)
[2021-07-16] MEDS: prednisoLONE ACET 1% OPHT DROP 5 ML BOTTLE RIGHTEYE SCH ×6 (01:51→20:42)
[2021-07-16 04:00] VITALS: BP 148/62
[2021-07-16] MEDS: PANTOPRAZOLE SODIUM 40 MG TABLET.DR PO SCH (06:11)
[2021-07-16] MEDS: PREGABALIN 25 MG CAPSULE PO SCH ×3 (06:11→21:43)
[2021-07-16 07:49] VITALS: BP 158/95
[2021-07-16] MEDS: HYDROCODONE/APAP 10-325 MG TABLET PO SCH ×2 (08:54→13:48)
[2021-07-16] MEDS: CELECOXIB 200 MG CAPSULE PO SCH (08:55)
[2021-07-16] MEDS: LIDOCAINE 5% PATCH TD SCH (08:55)
[2021-07-16] MEDS: SERTRALINE HCL 100 MG TABLET PO SCH ×2 (08:55→16:40)
[2021-07-16] MEDS: LOSARTAN POTASSIUM 50 MG TABLET PO SCH ×2 (09:07→20:44)
--- NOTE | 2021-07-16 10:34 | NUR ---
INTERDISCIPLINARY TEAM CONFERENCE THIS WAS HELD AND OBSERVED 07/15/21 AT 13:00
--- NOTE | 2021-07-16 12:32 | NUR ---
INDIVIDUALIZED PLAN OF CARE
[2021-07-16 15:56] VITALS: BP 120/49
[2021-07-16] MEDS: ENSURE ENLIVE (VAN) 240 ML LIQUID PO SCH (16:40)
--- NOTE | 2021-07-16 18:32 | NUR ---
Patient is on [place] during the shift as routine. No distress identified. Kept call light within reach. All due meds given. All needs attended. Safety measures maintained. Aspiration precaution maintained. Will endorse for continuity of care.
[2021-07-16] MEDS: DOCUSATE SODIUM 100 MG CAPSULE PO SCH (20:43)
[2021-07-16] MEDS: LATANOPROST OPHT DROP 2.5 ML BOTTLE EACHEYE SCH (20:43)
[2021-07-16] MEDS: HYDROCODONE/APAP 5-325MG TABLET PO PRN (21:32)
[2021-07-16 22:04] VITALS: BP 112/45
[2021-07-17] MEDS: prednisoLONE ACET 1% OPHT DROP 5 ML BOTTLE RIGHTEYE SCH ×6 (00:55→20:03)
[2021-07-17] MEDS: PREGABALIN 25 MG CAPSULE PO SCH ×3 (05:07→21:35)
[2021-07-17] MEDS: PANTOPRAZOLE SODIUM 40 MG TABLET.DR PO SCH (06:08)
[2021-07-17 06:09] VITALS: BP 141/50
--- NOTE | 2021-07-17 06:26 | NUR ---
No distress noted. Kept call light within reach. Frequent visual check. Safety precaution maintained. All due meds given. All needs attended. Will endorse to the next shift for continuity of care.
[2021-07-17 08:00] VITALS: BP 139/57
[2021-07-17] MEDS: ENSURE ENLIVE (VAN) 240 ML LIQUID PO SCH ×2 (09:00→17:00)
[2021-07-17] MEDS: CELECOXIB 200 MG CAPSULE PO SCH (09:32)
[2021-07-17] MEDS: HYDROCODONE/APAP 10-325 MG TABLET PO SCH ×2 (09:32→14:08)
[2021-07-17] MEDS: SERTRALINE HCL 100 MG TABLET PO SCH ×2 (09:33→18:14)
[2021-07-17] MEDS: LOSARTAN POTASSIUM 50 MG TABLET PO SCH ×2 (09:33→20:03)
[2021-07-17] MEDS: LIDOCAINE 5% PATCH TD SCH (09:34)
--- NOTE | 2021-07-17 15:53 | NUR ---
Nursing- OOB to chair to the bathroom, continent of her bladder. Complained of lower back pain. as well as right upper arm pain, claimed r/t to previous fall, safety reviewed and emphasized.
[2021-07-17 16:00] VITALS: BP 126/44
--- NOTE | 2021-07-17 19:08 | NUR ---
Nursing- Dr Beka Mack, in to see patient , was informed of her itching on her hands, orders received.
[2021-07-17] MEDS ORDERED: diphenhydrAMINE 25 MG/10 ML UDC NG PRN (19:15)
[2021-07-17 20:00] VITALS: BP 131/58
[2021-07-17] MEDS ORDERED: diphenhydrAMINE 25 MG/10 ML UDC PO PRN (20:00)
[2021-07-17] MEDS: DOCUSATE SODIUM 100 MG CAPSULE PO SCH (20:03)
[2021-07-17] MEDS: LATANOPROST OPHT DROP 2.5 ML BOTTLE EACHEYE SCH (20:04)
[2021-07-17] MEDS: diphenhydrAMINE 25 MG CAP PO PRN (20:56)
[2021-07-17] MEDS: ACETAMINOPHEN 325 MG TABLET PO PRN (21:02)
[2021-07-18] MEDS: prednisoLONE ACET 1% OPHT DROP 5 ML BOTTLE RIGHTEYE SCH ×6 (01:06→20:31)
[2021-07-18] MEDS: PREGABALIN 25 MG CAPSULE PO SCH ×3 (05:03→21:05)
--- NOTE | 2021-07-18 05:59 | NUR ---
Received resident awake on bed with no respiratory distress upon initial rounds. Slept throughout the night, easily arousable for care. She is alert and oriented x4, able to make needs known, BRP using walker with assistance. Due meds given on time and tolerated well. All needs attended. Call light placed within reach. Frequent visual checks done. Will endorse to next shift.
[2021-07-18] MEDS: PANTOPRAZOLE SODIUM 40 MG TABLET.DR PO SCH (06:13)
[2021-07-18] MEDS: SERTRALINE HCL 100 MG TABLET PO SCH ×2 (08:36→16:05)
[2021-07-18] MEDS: HYDROCODONE/APAP 10-325 MG TABLET PO SCH ×2 (08:37→14:04)
[2021-07-18] MEDS: CELECOXIB 200 MG CAPSULE PO SCH (08:37)
[2021-07-18] MEDS: LOSARTAN POTASSIUM 50 MG TABLET PO SCH ×2 (08:37→20:32)
[2021-07-18] MEDS: LIDOCAINE 5% PATCH TD SCH (08:38)
[2021-07-18] MEDS: ENSURE ENLIVE (VAN) 240 ML LIQUID PO SCH ×2 (08:39→17:32)
[2021-07-18 08:45] VITALS: BP 154/67
[2021-07-18 16:15] VITALS: BP 112/77
--- NOTE | 2021-07-18 18:22 | NUR ---
Patient is alert and oriented , pleasant and cooperative upon assessment. Patient in room air saturating at 95%. All due meds given per MD order. Patient has no signs of distress. Kept skin clean and dry. Placed call light within reach.
[2021-07-18 20:00] VITALS: BP 104/48
[2021-07-18] MEDS: LATANOPROST OPHT DROP 2.5 ML BOTTLE EACHEYE SCH (20:32)
[2021-07-18] MEDS: DOCUSATE SODIUM 100 MG CAPSULE PO SCH (20:32)
[2021-07-18] MEDS: diphenhydrAMINE 25 MG CAP PO PRN (20:37)
[2021-07-18] MEDS: ACETAMINOPHEN 325 MG TABLET PO PRN (20:38)
--- NOTE | 2021-07-18 21:14 | NUR ---
Received resident awake on bed with no respiratory distress upon initial rounds. Slept throughout the night, easily arousable for care. She is alert and oriented x4, able to make needs known, BRP using walker with assistance. Due meds given on time and tolerated well. All needs attended. Call light placed within reach. Frequent visual checks done. Will endorse to next shift. Addendum: 07/18/21 at 2117 by VANDANA MONTES RN Strike out charting, wrong documentation.
--- NOTE | 2021-07-18 21:24 | NUR ---
Received resident awake on bed with no respiratory distress. She is alert and oriented x4, able to make needs known, BRP using walker with assistance. Cozaar PO not given d/t pt refusal and BP 104/48. Tylenol PRN given for left shoulder pain. All needs attended. Call light placed within reach. Will endorse to next shift.
[2021-07-19] MEDS: prednisoLONE ACET 1% OPHT DROP 5 ML BOTTLE RIGHTEYE SCH ×6 (01:16→20:43)
[2021-07-19 05:13] VITALS: BP 110/46
[2021-07-19] MEDS: PANTOPRAZOLE SODIUM 40 MG TABLET.DR PO SCH (06:02)
[2021-07-19] MEDS: PREGABALIN 25 MG CAPSULE PO SCH ×3 (06:02→21:00)
[2021-07-19 08:00] VITALS: BP 143/62
[2021-07-19] MEDS: HYDROCODONE/APAP 10-325 MG TABLET PO SCH ×2 (11:39→15:09)
[2021-07-19] MEDS: CELECOXIB 200 MG CAPSULE PO SCH (11:39)
[2021-07-19] MEDS: SERTRALINE HCL 100 MG TABLET PO SCH ×2 (11:39→16:36)
[2021-07-19] MEDS: LIDOCAINE 5% PATCH TD SCH (11:39)
[2021-07-19] MEDS: ENSURE ENLIVE (VAN) 240 ML LIQUID PO SCH ×2 (11:40→16:35)
[2021-07-19] MEDS: LOSARTAN POTASSIUM 50 MG TABLET PO SCH ×2 (11:41→20:52)
[2021-07-19 16:00] VITALS: BP 105/41
--- NOTE | 2021-07-19 19:35 | NUR ---
Received pt sitting up in wheelchair, assisted pt back to bed. Alert and oriented to name, place, time and situation. Able to state all needs. On room air saturating at 99%. No signs of acute distress. Belongings and call lights within reach. Safety measures initiated.
[2021-07-19 20:42] VITALS: BP 114/48
[2021-07-19] MEDS: DOCUSATE SODIUM 100 MG CAPSULE PO SCH (20:43)
[2021-07-19] MEDS: LATANOPROST OPHT DROP 2.5 ML BOTTLE EACHEYE SCH (20:43)
[2021-07-20] MEDS: prednisoLONE ACET 1% OPHT DROP 5 ML BOTTLE RIGHTEYE SCH ×7 (00:35→21:02)
[2021-07-20] MEDS: ACETAMINOPHEN 325 MG TABLET PO PRN (03:08)
[2021-07-20 04:51] VITALS: BP 140/55
[2021-07-20] MEDS: PREGABALIN 25 MG CAPSULE PO SCH ×3 (06:14→21:32)
[2021-07-20] MEDS: PANTOPRAZOLE SODIUM 40 MG TABLET.DR PO SCH (06:14)
--- NOTE | 2021-07-20 06:47 | NUR ---
Pt slept throughout the night. Alert and oriented to name, place, time and situation. On room air saturating at 98%. No signs of acute distress. Tylenol 650 mg PO PRN given for back pain. Able to make needs known. Needs have been attended and met. Belongings and call lights within reach. Safety measures maintained.
[2021-07-20 08:00] VITALS: BP 131/52
[2021-07-20] MEDS: CELECOXIB 200 MG CAPSULE PO SCH (08:15)
[2021-07-20] MEDS: HYDROCODONE/APAP 10-325 MG TABLET PO SCH ×2 (08:15→13:08)
[2021-07-20] MEDS: SERTRALINE HCL 100 MG TABLET PO SCH ×2 (08:16→17:03)
[2021-07-20] MEDS: LOSARTAN POTASSIUM 50 MG TABLET PO SCH ×2 (08:17→20:57)
[2021-07-20] MEDS: ENSURE ENLIVE (VAN) 240 ML LIQUID PO SCH ×2 (08:17→17:06)
[2021-07-20] MEDS: LIDOCAINE 5% PATCH TD SCH (08:20)
[2021-07-20] MEDS: HYDROCODONE/APAP 5-325MG TABLET PO PRN ×2 (13:07→17:24)
[2021-07-20 16:00] VITALS: BP 135/49
[2021-07-20 20:15] VITALS: BP 131/64
[2021-07-20] MEDS: DOCUSATE SODIUM 100 MG CAPSULE PO SCH (20:57)
[2021-07-20] MEDS: LATANOPROST OPHT DROP 2.5 ML BOTTLE EACHEYE SCH (20:59)
[2021-07-21] MEDS: prednisoLONE ACET 1% OPHT DROP 5 ML BOTTLE RIGHTEYE SCH ×6 (01:11→20:58)
[2021-07-21 04:15] VITALS: BP 124/57
[2021-07-21] MEDS: PREGABALIN 25 MG CAPSULE PO SCH ×3 (05:31→21:40)
[2021-07-21] MEDS: PANTOPRAZOLE SODIUM 40 MG TABLET.DR PO SCH (05:32)
[2021-07-21 08:00] VITALS: BP 141/63
[2021-07-21] MEDS: CELECOXIB 200 MG CAPSULE PO SCH (08:54)
[2021-07-21] MEDS: HYDROCODONE/APAP 10-325 MG TABLET PO SCH ×2 (08:54→12:49)
[2021-07-21] MEDS: LOSARTAN POTASSIUM 50 MG TABLET PO SCH ×2 (08:55→20:58)
[2021-07-21] MEDS: SERTRALINE HCL 100 MG TABLET PO SCH ×2 (08:55→16:14)
[2021-07-21] MEDS: ENSURE ENLIVE (VAN) 240 ML LIQUID PO SCH ×2 (08:56→17:52)
[2021-07-21] MEDS: LIDOCAINE 5% PATCH TD SCH (08:58)
--- NOTE | 2021-07-21 15:45 | NUR ---
Patient in bed, alert and oriented x 4, cooperative upon assessment, in room air saturating at 95%. All needs met promptly. Assisted to the bathroom and placed back to bed with bed alarm functioning well. Kept skin clean and dry. Call light within easy reach.
[2021-07-21 16:00] VITALS: BP 122/59
--- NOTE | 2021-07-21 19:15 | NUR ---
per son, the patient is taking Moxifloxacin 0.5% on her right eye every 4 hours 4x a day. Notified Dr. Rogers and awaiting for response and endorsed tot he next shift.
[2021-07-21] MEDS: LATANOPROST OPHT DROP 2.5 ML BOTTLE EACHEYE SCH (20:57)
[2021-07-21] MEDS: DOCUSATE SODIUM 100 MG CAPSULE PO SCH (20:57)
[2021-07-21 21:09] VITALS: BP 132/49
[2021-07-22] MEDS: prednisoLONE ACET 1% OPHT DROP 5 ML BOTTLE RIGHTEYE SCH ×6 (01:34→20:21)
[2021-07-22 04:42] VITALS: BP 153/51
[2021-07-22] MEDS: PREGABALIN 25 MG CAPSULE PO SCH ×3 (05:34→21:56)
[2021-07-22] MEDS: PANTOPRAZOLE SODIUM 40 MG TABLET.DR PO SCH (05:34)
--- NOTE | 2021-07-22 05:35 | NUR ---
Patient refused Am lab draw.
--- NOTE | 2021-07-22 07:25 | NUR ---
Received patient asleep in bed. On room air. No signs of acute distress. Bed alarm on. Call light within reach. Will continue to monitor.
[2021-07-22 08:00] VITALS: BP 137/55
[2021-07-22] MEDS: SERTRALINE HCL 100 MG TABLET PO SCH ×2 (08:17→17:48)
[2021-07-22] MEDS: CELECOXIB 200 MG CAPSULE PO SCH (08:18)
[2021-07-22] MEDS: LOSARTAN POTASSIUM 50 MG TABLET PO SCH ×2 (08:21→20:23)
[2021-07-22] MEDS: ENSURE ENLIVE (VAN) 240 ML LIQUID PO SCH ×3 (08:23→17:48)
[2021-07-22] MEDS: HYDROCODONE/APAP 10-325 MG TABLET PO SCH ×2 (08:23→13:20)
[2021-07-22] MEDS: LIDOCAINE 5% PATCH TD SCH (08:23)
[2021-07-22 16:01] VITALS: BP 140/57
--- NOTE | 2021-07-22 18:09 | NUR ---
INTERDISCIPLINARY TEAM CONFERENCE
--- NOTE | 2021-07-22 18:25 | NUR ---
Patient resting in bed. AOx3-4. On room air. No signs of acute distress. Patient denies pain/ discomfort at this time. Compliant with medications and care. Participated with physical and occupational therapy. Bed alarm on. Call light within reach. Will endorse to incoming shift for continuity of care.
[2021-07-22 20:00] VITALS: BP 130/78
[2021-07-22] MEDS: LATANOPROST OPHT DROP 2.5 ML BOTTLE EACHEYE SCH (20:21)
[2021-07-22] MEDS: DOCUSATE SODIUM 100 MG CAPSULE PO SCH (20:21)
[2021-07-22] MEDS: ACETAMINOPHEN 325 MG TABLET PO PRN (22:44)
[2021-07-23] MEDS: prednisoLONE ACET 1% OPHT DROP 5 ML BOTTLE RIGHTEYE SCH ×6 (01:27→20:46)
[2021-07-23] MEDS: HYDROCODONE/APAP 5-325MG TABLET PO PRN (01:53)
--- NOTE | 2021-07-23 05:14 | NUR ---
Patient very needy,rude, verbally abusive and demanding. Very forgetful and very inpatient. Constantly calling and calling demanding her eyedrops, and complaining that she did not have her dinner. Medicated twice for pain with relief. Slept afterwards. All needs attended and met. No significant event reported all night. Continue care as planned.
[2021-07-23] MEDS: PANTOPRAZOLE SODIUM 40 MG TABLET.DR PO SCH (05:29)
[2021-07-23] MEDS: PREGABALIN 25 MG CAPSULE PO SCH ×3 (05:29→21:56)
[2021-07-23 05:33] VITALS: BP 135/79
[2021-07-23 08:01] VITALS: BP 130/52
[2021-07-23] MEDS: CELECOXIB 200 MG CAPSULE PO SCH (08:55)
[2021-07-23] MEDS: LOSARTAN POTASSIUM 50 MG TABLET PO SCH ×2 (08:56→20:45)
[2021-07-23] MEDS: ENSURE ENLIVE (VAN) 240 ML LIQUID PO SCH ×3 (08:56→17:43)
[2021-07-23] MEDS: LIDOCAINE 5% PATCH TD SCH (08:56)
[2021-07-23] MEDS: SERTRALINE HCL 100 MG TABLET PO SCH ×2 (08:56→17:43)
[2021-07-23] MEDS: HYDROCODONE/APAP 10-325 MG TABLET PO SCH ×2 (09:04→13:34)
[2021-07-23 16:00] VITALS: BP 102/42
--- NOTE | 2021-07-23 18:00 | NUR ---
Patient remains alert, oriented x 3, not in any form of distress, on room air. Due medications administered as ordered and patient tolerated well. She participated with PT and OT during the shift. Assisted with her needs promptly. Call light and frequently used items placed within patient's reach.
--- NOTE | 2021-07-23 19:20 | NUR ---
Patient's son Jesús at bedside and mentioned regarding antibiotic eyedrops 1 drop 4x a day on the right eye that needs to be continued together with Predforte eyedrops as advised by patient's drill presser s/p corneal transplant 2 months ago. Sent a message to Dr. Rogers awaiting for reply. Endorsed accordingly to propeller tester nurse.
[2021-07-23 20:00] VITALS: BP 121/57
[2021-07-23] MEDS: DOCUSATE SODIUM 100 MG CAPSULE PO SCH (20:45)
[2021-07-23] MEDS: LATANOPROST OPHT DROP 2.5 ML BOTTLE EACHEYE SCH (20:47)
[2021-07-23] MEDS: CIPROFLOXACIN 0.3% OPHT DROP 2.5 ML BOTTLE RIGHTEYE SCH (23:00)
[2021-07-24] MEDS: prednisoLONE ACET 1% OPHT DROP 5 ML BOTTLE RIGHTEYE SCH ×6 (00:52→20:50)
[2021-07-24] MEDS: CIPROFLOXACIN 0.3% OPHT DROP 2.5 ML BOTTLE RIGHTEYE SCH ×12 (00:53→23:38)
[2021-07-24 04:00] VITALS: BP 143/52
[2021-07-24] MEDS: PANTOPRAZOLE SODIUM 40 MG TABLET.DR PO SCH (05:13)
[2021-07-24] MEDS: PREGABALIN 25 MG CAPSULE PO SCH ×3 (05:13→21:25)
[2021-07-24 08:00] VITALS: BP 135/56
[2021-07-24] MEDS ORDERED: MOXIFLOXACIN HCL 3 ML OPHT DROPS RIGHTEYE SCH (09:00)
[2021-07-24] MEDS: CELECOXIB 200 MG CAPSULE PO SCH (09:40)
[2021-07-24] MEDS: HYDROCODONE/APAP 10-325 MG TABLET PO SCH ×2 (09:40→13:42)
[2021-07-24] MEDS: LIDOCAINE 5% PATCH TD SCH (09:40)
[2021-07-24] MEDS: LOSARTAN POTASSIUM 50 MG TABLET PO SCH ×2 (09:41→20:50)
[2021-07-24] MEDS: ENSURE ENLIVE (VAN) 240 ML LIQUID PO SCH ×3 (09:43→17:09)
[2021-07-24] MEDS: SERTRALINE HCL 100 MG TABLET PO SCH ×2 (09:50→17:09)
[2021-07-24 16:00] VITALS: BP 126/51
[2021-07-24 20:00] VITALS: BP 116/51
[2021-07-24] MEDS: DOCUSATE SODIUM 100 MG CAPSULE PO SCH (20:48)
[2021-07-24] MEDS: LATANOPROST OPHT DROP 2.5 ML BOTTLE EACHEYE SCH (20:50)
[2021-07-25] MEDS: HYDROCODONE/APAP 5-325MG TABLET PO PRN ×2 (00:25→22:07)
[2021-07-25] MEDS: diphenhydrAMINE 25 MG CAP PO PRN (00:59)
[2021-07-25] MEDS: CIPROFLOXACIN 0.3% OPHT DROP 2.5 ML BOTTLE RIGHTEYE SCH ×13 (01:02→20:40)
[2021-07-25] MEDS: prednisoLONE ACET 1% OPHT DROP 5 ML BOTTLE RIGHTEYE SCH ×6 (01:05→20:38)
[2021-07-25 04:00] VITALS: BP 127/52
[2021-07-25] MEDS: PREGABALIN 25 MG CAPSULE PO SCH ×3 (05:28→21:33)
[2021-07-25] MEDS: PANTOPRAZOLE SODIUM 40 MG TABLET.DR PO SCH (06:06)
--- NOTE | 2021-07-25 06:33 | NUR ---
Pt slept throughout the night, no respiratory distress noted. Easily arousable for care. Due medication given on time and tolerated well. Medicated pain x1 and noted effective. All needs attended. Call light placed within reach. Frequent visual checks done.
[2021-07-25 08:10] VITALS: BP 129/55
[2021-07-25] MEDS: HYDROCODONE/APAP 10-325 MG TABLET PO SCH ×2 (08:29→13:06)
[2021-07-25] MEDS: CELECOXIB 200 MG CAPSULE PO SCH (08:29)
[2021-07-25] MEDS: LOSARTAN POTASSIUM 50 MG TABLET PO SCH ×2 (08:31→20:38)
[2021-07-25] MEDS: SERTRALINE HCL 100 MG TABLET PO SCH ×2 (08:32→16:52)
[2021-07-25] MEDS: ENSURE ENLIVE (VAN) 240 ML LIQUID PO SCH ×3 (08:32→16:56)
[2021-07-25] MEDS: LIDOCAINE 5% PATCH TD SCH (09:15)
[2021-07-25 17:12] VITALS: BP 96/43
--- NOTE | 2021-07-25 18:28 | NUR ---
Patient remain AAO X 4 resting in bed. On room air. No signs of acute distress. Patient medicated for pain/ discomfort as per order. Compliant with medications and care. Up out bed with physical and occupational therapy ambulating with FWW. Bed alarm on. Call light within reach. Will endorse to incoming shift for continuity of care.
[2021-07-25 20:15] VITALS: BP 110/68
[2021-07-25] MEDS: DOCUSATE SODIUM 100 MG CAPSULE PO SCH (20:37)
[2021-07-25] MEDS: LATANOPROST OPHT DROP 2.5 ML BOTTLE EACHEYE SCH (20:39)
[2021-07-26] MEDS: prednisoLONE ACET 1% OPHT DROP 5 ML BOTTLE RIGHTEYE SCH ×4 (01:06→13:24)
[2021-07-26 04:21] VITALS: BP 134/62
[2021-07-26] MEDS: PREGABALIN 25 MG CAPSULE PO SCH ×2 (05:25→13:23)
[2021-07-26] MEDS: PANTOPRAZOLE SODIUM 40 MG TABLET.DR PO SCH (06:01)
[2021-07-26 08:00] VITALS: BP 146/59
[2021-07-26] MEDS: LOSARTAN POTASSIUM 50 MG TABLET PO SCH (09:18)
[2021-07-26] MEDS: LIDOCAINE 5% PATCH TD SCH (09:18)
[2021-07-26] MEDS: SERTRALINE HCL 100 MG TABLET PO SCH (09:19)
[2021-07-26] MEDS: HYDROCODONE/APAP 10-325 MG TABLET PO SCH ×2 (09:19→13:23)
[2021-07-26] MEDS: CELECOXIB 200 MG CAPSULE PO SCH (09:19)
[2021-07-26] MEDS: ENSURE ENLIVE (VAN) 240 ML LIQUID PO SCH ×2 (09:20→13:23)
[2021-07-26] MEDS: CIPROFLOXACIN 0.3% OPHT DROP 2.5 ML BOTTLE RIGHTEYE SCH (13:27)
== END 2021-07-26 15:50 | DRG 948 ==
LOC: MERGE 19:05
PROVIDERS: ADMIT Physical Medicine & Rehabilitation Pain Medicine; ATTEND Physical Medicine & Rehabilitation Pain Medicine
DX: R53.1 Weakness (principal); D68.59 Other primary thrombophilia; Z91.81 History of falling; R29.6 Repeated falls; D64.9 Anemia, unspecified; G89.29 Other chronic pain; D50.9 Iron deficiency anemia, unspecified; F32.A Depression, unspecified; F41.9 Anxiety disorder, unspecified; I10 Essential (primary) hypertension; M48.02 Spinal stenosis, cervical region; M50.21 Other cervical disc displacement, high cervical region; M43.12 Spondylolisthesis, cervical region; M19.072 Primary osteoarthritis, left ankle and foot; M19.071 Primary osteoarthritis, right ankle and foot; I25.10 Atherosclerotic heart disease of native coronary artery without angina pectoris; M81.0 Age-related osteoporosis without current pathological fracture; K21.9 Gastro-esophageal reflux disease without esophagitis; R26.9 Unspecified abnormalities of gait and mobility; R55 Syncope and collapse; M48.55XS Collapsed vertebra, not elsewhere classified, thoracolumbar region, sequela of fracture; M54.10 Radiculopathy, site unspecified; M47.813 Spondylosis without myelopathy or radiculopathy, cervicothoracic region; M47.814 Spondylosis without myelopathy or radiculopathy, thoracic region
CPT/HCPCS: 73502; 97161; 97535-GO-CO; A4663; J2650; Q0163

== ENCOUNTER 2021-08-23 14:01 | Inpatient (IN) | payer MEDICARE, OTHER ==
[~2021-08-23] VITALS: Ht 162.6 cm; Wt 61.2 kg
[~2021-08-23 14:01] MED LIST changes: +ACET325C7 PO; +HYDR-4209 PO; +LATA2.5D15 EACHEYE; +LIDO30AD10 TD; +MAGN400O6 PO; +PANT40TA2 PO; -TRAV5DRO EACHEYE
[2021-08-23] MEDS ORDERED: [UNRECOGNIZED DRUG - CODE] PO (15:15)
[2021-08-23] MEDS ORDERED: HYDR-3980 PO (15:15)
[2021-08-23] MEDS ORDERED: LACT-47 PO (15:15)
[2021-08-23] MEDS ORDERED: NUTR113P PO (15:15)
[2021-08-23] MEDS ORDERED: CELE200C PO (15:15)
[2021-08-23] MEDS ORDERED: PREG50CA PO (15:15)
[2021-08-23] MEDS ORDERED: POLY17PO4 PO (15:15)
[2021-08-23] MEDS ORDERED: ASCO500T10 PO (15:15)
[2021-08-23] MEDS ORDERED: MULT-213 PO (15:15)
[2021-08-23] MEDS ORDERED: CHOL10005 PO (15:15)
[2021-08-23] MEDS ORDERED: DOCU100C36 PO (15:15)
[2021-08-23] MEDS ORDERED: CEPH500T PO (15:15)
[2021-08-23] MEDS ORDERED: DICLOFENAC OINTMENT TP (15:15)
[2021-08-23] MEDS ORDERED: TRAMADOL HCL 50 MG TABLET PO ONE (16:30)
--- NOTE | 2021-08-23 16:30 | NUR ---
Pt watching TV with no s/s of distess noted.
[2021-08-23] MEDS ORDERED: TRAMADOL HCL 50 MG TABLET ONE (16:51)
[2021-08-23 17:15] LABS: HEMATOCRIT 32.9 % (31.2-41.9); MEAN CORPUSCULAR HEMOGLOBIN 27.3 uug (24.7-32.8); MEAN CORPUSCULAR VOLUME 81.4 fL (75.5-95.3); PLATELET COUNT (AUTO) 175 K/uL (179-408)
[2021-08-23 17:26] LABS: CREATININE 0.6 mg/dL (0.6-1.3); POTASSIUM 4.3 mmol/L (3.5-5.1)
[2021-08-23 17:32] LABS: BILIRUBIN,DIRECT 0.1 mg/dL (0.0-0.2); BILIRUBIN,TOTAL 0.3 mg/dL (0.2-1.0); TOTAL PROTEIN, SERUM 6.8 g/dL (6.4-8.2)
--- NOTE | 2021-08-23 18:00 | NUR ---
spoke with Melissa,PHOTONICS ENGINEER and pt has been accepted for admission to tele. Tele floor and nursing supervisor cytogenetic laboratory notified for tele bed, none available at this time. Pt resting in gurney and watching TV with NAD noted at this time.
--- NOTE | 2021-08-23 21:45 | NUR ---
SBAR report given to tele floor.
--- NOTE | 2021-08-23 21:57 | NUR ---
Pt trans to tele room 320, NAD noted.
--- NOTE | 2021-08-23 22:10 | NUR ---
ADMITTED PATIENT ON TELE FLOOR UNDER THE CARE [employer] SECRECY ACT OFFICER, PATIENT ALERT BUT FORGETFUL SPEAK FARSI, BUT UNDERSTAND [place] ISLANDER, PATIENT COMPLAIN OF HEADACHES, AND RIGHT HIP PAIN. PATIENT WANTED TO WALK BUT NOTED WITH BILATERAL LEG WEAK UNABLE TO STAND UP, AND WALK. BED ALARM WAS PUT ON FOR SAFETY.
--- NOTE | 2021-08-24 | NUR ---
PATIENT IV LINE INFILTRATED, TRIED TO PUT A NEW ONE, PATIENT GETS AGITATED, PULLED HANDS AWAY, YELLS AND SCREAMS, REFUSED IV AT THIS TIME, WILL TRY AGAIN LATER.
[2021-08-24 00:44] VITALS: BP 172/68
[2021-08-24] MEDS ORDERED: MAGNESIUM HYDROXIDE 30 ML LIQUID UDC PO PRN (00:45)
[2021-08-24] MEDS ORDERED: ONDANSETRON 4 MG/2 ML VIAL IV PRN (00:45)
[2021-08-24] MEDS ORDERED: IV NS 1000 ML 1,000 ML IV PRN (00:45)
[2021-08-24] MEDS ORDERED: REMEDY ESSENTIAL ZINC PASTE 113 GM TP PRN (00:45)
[2021-08-24] MEDS ORDERED: LIDOCAINE 5% PATCH TD PRN (00:45)
[2021-08-24 00:55] VITALS: BP_SYST 141; BP_SYST 172; BP_DIAS 56; BP_DIAS 68
[2021-08-24] MEDS: ENOXAPARIN SODIUM 40 MG/0.4 ML DISP.SYRIN SQ SCH ×2 (01:39→22:01)
[2021-08-24] MEDS: ALPRAZOLAM 0.5 MG TABLET PO PRN (01:55)
--- NOTE | 2021-08-24 01:55 | NUR ---
PATIENT HAS ANXIETY MULTIPLE EPISODES, TAKES LOTS OF PERSUASION BEFORE LAB DRAW, PATIENT HAS MULTIPLE DEMANDS, ATTENDS PATIENT NEEDS, ANSWER HER CALL LIGHT CAMILA, CONT TO MONITOR.
--- NOTE | 2021-08-24 02:00 | NUR ---
PATIENT STILL AWAKE, CONTINUE TO REFUSED IV LINES, CONT TO MONITOR.
--- NOTE | 2021-08-24 03:59 | NUR ---
PATIENT REMOVES TELE MONITOR BOX, REFUSED TELE MONITOR TOO AGITATED, WILL CONT TO OFFER.
[2021-08-24 04:45] VITALS: BP 141/56
[2021-08-24] MEDS: PANTOPRAZOLE SODIUM 40 MG TABLET.DR PO SCH (05:21)
[2021-08-24] MEDS ORDERED: PREGABALIN 50 MG CAPSULE PO SCH (06:00)
--- NOTE | 2021-08-24 06:32 | NUR ---
PATIENT ASLEEP BUT AROUSABLE, NO SOB NO CHEST PAIN, NO COMPLAIN OF PAIN AT THIS TIME. PATIENT CONTINUE TO REFUSE TELE MONITOR BOX, REFUSED IV LINES, PATIENT GETS AGITATED WHEN TRIED TO INSERT IV LINES, PATIENT WAS GIVEN XANAX FOR ANXIETY WITH SOME HELP, WITH NO ADVERSE REACTION NOTED.
[2021-08-24] MEDS ORDERED: prednisoLONE ACET 1% OPHT DROP 5 ML BOTTLE RIGHTEYE SCH (09:00)
[2021-08-24] MEDS ORDERED: SERTRALINE HCL 50 MG TABLET PO SCH (09:00)
[2021-08-24] MEDS: COMPLEAT MODIFIED FORMULA 1000 ML LIQUID PO SCH ×3 (09:00→17:27)
[2021-08-24] MEDS: LOSARTAN POTASSIUM 25 MG TABLET PO SCH ×2 (10:24→21:19)
[2021-08-24 11:49] VITALS: BP 135/64
[2021-08-24] MEDS: SERTRALINE HCL 100 MG TABLET PO SCH ×2 (13:18→17:26)
[2021-08-24] MEDS: PREGABALIN 25 MG CAPSULE PO SCH ×2 (13:18→21:20)
[2021-08-24] MEDS: LIDOCAINE 5% PATCH TD SCH ×2 (13:19→13:29)
[2021-08-24] MEDS: prednisoLONE ACET 1% OPHT DROP 5 ML BOTTLE RIGHTEYE SCH ×2 (15:29→17:00)
[2021-08-24] MEDS: ACETAMINOPHEN 325 MG TABLET PO PRN (18:51)
[2021-08-24 19:00] VITALS: BP 148/69
[2021-08-24] MEDS: LATANOPROST OPHT DROP 2.5 ML BOTTLE EACHEYE SCH (22:39)
[2021-08-25] MEDS: PREGABALIN 25 MG CAPSULE PO SCH ×3 (05:02→21:36)
[2021-08-25] MEDS: ACETAMINOPHEN 325 MG TABLET PO PRN ×2 (05:02→23:14)
[2021-08-25 05:34] VITALS: BP 176/85
[2021-08-25] MEDS: PANTOPRAZOLE SODIUM 40 MG TABLET.DR PO SCH (06:23)
[2021-08-25 06:44] LABS: HEMATOCRIT 33.1 % (31.2-41.9); MEAN CORPUSCULAR VOLUME 80.9 fL (75.5-95.3); PLATELET COUNT (AUTO) 176 K/uL (179-408)
[2021-08-25 06:57] LABS: CARBON DIOXIDE 31 mmol/L (21-32); CHLORIDE 93 mmol/L (98-107); CHOLESTEROL 144 mg/dL (<200); CREATININE 0.5 mg/dL (0.6-1.3); GLUCOSE 105 mg/dL (74-106); HDL CHOLESTEROL 57 mg/dL (40-60); MAGNESIUM 1.7 mg/dL (1.8-2.4); PHOSPHOROUS 3.5 mg/dL (2.5-4.9); TRIGLYCERIDES 51 MG/DL (30-150); UREA NITROGEN, BLOOD 15 mg/dL (7-18)
--- NOTE | 2021-08-25 07:02 | NUR ---
PATIENT ASLEEP BUT AROUSABLE, NO ADVERSE CHANGES NOTED, V/S STABLE, KEPT CLEAN AND DRY, COMPLAIN OF HEADACHES GIVEN TYLENOL WITH HELP AFTER ONE HOUR. CONT TO MONITOR.
[2021-08-25 07:03] LABS: THYROID STIMULATING HORMONE 1.357 mIU/mL (0.358-3.740)
--- NOTE | 2021-08-25 08:00 | NUR ---
RECEIVED PATIENT IN BED AWAKE ALERT AND VERBALLY RESPONSIVE NO SS OF DISTRESS OR ACUTE PAIN. OBSERVE
[2021-08-25] MEDS ORDERED: MAGNESIUM OXIDE 400 MG TABLET PO ONE (09:00)
[2021-08-25] MEDS: SERTRALINE HCL 100 MG TABLET PO SCH ×2 (09:22→17:00)
[2021-08-25] MEDS: LIDOCAINE 5% PATCH TD SCH (09:23)
[2021-08-25] MEDS: prednisoLONE ACET 1% OPHT DROP 5 ML BOTTLE RIGHTEYE SCH ×2 (09:23→17:00)
[2021-08-25] MEDS: COMPLEAT MODIFIED FORMULA 1000 ML LIQUID PO SCH ×2 (09:24→12:29)
[2021-08-25] MEDS: LOSARTAN POTASSIUM 50 MG TABLET PO SCH ×2 (10:06→20:41)
[2021-08-25] MEDS: HYDROCODONE/APAP 5-325MG TABLET PO PRN ×2 (10:07→21:34)
--- NOTE | 2021-08-25 12:00 | NUR ---
SEEN BY PHYSICAL THERAPIST FOR TREATMENT SEE NOTES. NO CHANGE FROM MORNING ASSESSMENT
[2021-08-25] MEDS: ALPRAZOLAM 0.5 MG TABLET PO PRN (12:28)
[2021-08-25] MEDS: ENSURE ENLIVE (VAN) 240 ML LIQUID PO SCH (17:01)
--- NOTE | 2021-08-25 17:47 | NUR ---
CONTINUE WITH PAIN MANAGEMENT, NO SS OF DISTRESS. BP WNL
--- NOTE | 2021-08-25 19:30 | NUR ---
Received pt awake, alert and orientedx2. IV intact. Pt in no acute distress. Safety and comfort provided. Will continue to monitor.
[2021-08-25 20:41] VITALS: BP 134/53
[2021-08-25] MEDS: LATANOPROST OPHT DROP 2.5 ML BOTTLE EACHEYE SCH (20:42)
[2021-08-25] MEDS: ENOXAPARIN SODIUM 40 MG/0.4 ML DISP.SYRIN SQ SCH (20:47)
[2021-08-26] MEDS: ZOLPIDEM 5 MG TABLET PO PRN ×2 (01:17→06:13)
--- NOTE | 2021-08-26 01:51 | NUR ---
Tylenol 650mg prn given at 2314h for headache. Pt tolerated it well. Pt requesting for sleeping medication. Administered Ambien 5mg prn at 0117h. Medication effective as pt is sleeping after 40 minutes. . Pt in no acute distress. Will continue to monitor.
[2021-08-26 04:25] VITALS: BP 145/74
[2021-08-26] MEDS: PANTOPRAZOLE SODIUM 40 MG TABLET.DR PO SCH (06:12)
[2021-08-26] MEDS: PREGABALIN 25 MG CAPSULE PO SCH ×3 (06:13→21:04)
--- NOTE | 2021-08-26 06:26 | NUR ---
Pt slept intermittently. Pt in no acute distress. Pt have episodes of confusion. Needs reorientation. Prescribed medication given and pt tolerated it well. Safety and comfort provided. Will endorse to incoming nurse for continuity of care.
[2021-08-26 06:30] LABS: HEMATOCRIT 32.4 % (31.2-41.9); MEAN CORPUSCULAR HEMOGLOBIN 27.1 uug (24.7-32.8); MEAN CORPUSCULAR VOLUME 80.6 fL (75.5-95.3); PLATELET COUNT (AUTO) 207 K/uL (179-408)
[2021-08-26 06:46] LABS: CREATININE 0.6 mg/dL (0.6-1.3); MAGNESIUM 1.9 mg/dL (1.8-2.4); PHOSPHOROUS 4.2 mg/dL (2.5-4.9); POTASSIUM 4.1 mmol/L (3.5-5.1)
[2021-08-26] MEDS: prednisoLONE ACET 1% OPHT DROP 5 ML BOTTLE RIGHTEYE SCH ×2 (09:29→17:08)
[2021-08-26] MEDS: LIDOCAINE 5% PATCH TD SCH (09:29)
[2021-08-26] MEDS: SERTRALINE HCL 100 MG TABLET PO SCH ×2 (09:29→17:08)
[2021-08-26] MEDS: LOSARTAN POTASSIUM 50 MG TABLET PO SCH ×2 (09:29→20:46)
[2021-08-26] MEDS: ENSURE ENLIVE (VAN) 240 ML LIQUID PO SCH ×2 (09:30→17:08)
[2021-08-26 11:33] VITALS: BP 150/62
[2021-08-26 16:20] VITALS: BP 143/53
--- NOTE | 2021-08-26 18:19 | NUR ---
The patient remained stable during the shift. no distress identified. Tolerated the PT eval. all needs attended, due meds given. kept call light within reach. will endorse to the next shift for continuity of care.
--- NOTE | 2021-08-26 19:50 | NUR ---
Received pt lying in bed, resting. Alert and oriented X 2/3. Sometimes forgetful. Able to state needs. On RA saturating at 98%. No signs of acute distress. Fall precautions initiated. Safety measures implemented. Call lights within reach.
[2021-08-26 20:00] VITALS: BP 138/46
[2021-08-26] MEDS: LATANOPROST OPHT DROP 2.5 ML BOTTLE EACHEYE SCH (20:37)
[2021-08-26] MEDS: ENOXAPARIN SODIUM 40 MG/0.4 ML DISP.SYRIN SQ SCH (20:50)
[2021-08-26] MEDS: ACETAMINOPHEN 325 MG TABLET PO PRN (22:16)
[2021-08-26] MEDS: HYDROCODONE/APAP 5-325MG TABLET PO PRN (23:54)
--- NOTE | 2021-08-27 00:30 | NUR ---
2216: Tylenol 650 mg PO given for headache. 2350 Pt c/o 8/10 back pain, [place] 5-325 mg PO given. Both effective, pt sleeping comfortably and easily arousable. No signs of acute distress.
[2021-08-27 04:00] VITALS: BP 126/60
--- NOTE | 2021-08-27 04:51 | NUR ---
Pt sleeping comfortably throughout the night with no signs of distress. On room air saturating at 97%. Compliant with medication and care. No complaints at this time. Needs have been met. Call lights within reach. Safety measures maintained.
[2021-08-27] MEDS: PREGABALIN 25 MG CAPSULE PO SCH ×3 (06:19→21:13)
[2021-08-27] MEDS: PANTOPRAZOLE SODIUM 40 MG TABLET.DR PO SCH (06:19)
[2021-08-27] MEDS: prednisoLONE ACET 1% OPHT DROP 5 ML BOTTLE RIGHTEYE SCH ×2 (09:15→16:15)
[2021-08-27] MEDS: LIDOCAINE 5% PATCH TD SCH (09:15)
[2021-08-27] MEDS: LOSARTAN POTASSIUM 50 MG TABLET PO SCH ×2 (09:17→21:00)
[2021-08-27] MEDS: ENSURE ENLIVE (VAN) 240 ML LIQUID PO SCH ×2 (09:17→16:15)
[2021-08-27] MEDS: SERTRALINE HCL 100 MG TABLET PO SCH ×2 (09:17→16:15)
[2021-08-27 11:12] VITALS: BP 114/64
[2021-08-27] MEDS: HYDROCODONE/APAP 5-325MG TABLET PO PRN (11:18)
[2021-08-27 15:52] VITALS: BP 129/65
--- NOTE | 2021-08-27 18:47 | NUR ---
Patient currently resting comfortably in wheel chair in locked position. Patient received care well today along with medication regimen and PT. Patient has no IV site due to patient refusal. Patient receiving PO meds well. Will endorse information to PM nurse.
--- NOTE | 2021-08-27 19:10 | NUR ---
Received pt lying in bed. AO x 2, sometimes forgetful. Able to make needs known. On room air saturating at 96%. No signs of acute distress. Safety measures initiated. Call lights within reach.
[2021-08-27 20:00] VITALS: BP 121/58
[2021-08-27] MEDS: LATANOPROST OPHT DROP 2.5 ML BOTTLE EACHEYE SCH (20:10)
[2021-08-27] MEDS: ENOXAPARIN SODIUM 40 MG/0.4 ML DISP.SYRIN SQ SCH ×2 (20:14→21:00)
[2021-08-27] MEDS: ACETAMINOPHEN 325 MG TABLET PO PRN (20:20)
--- NOTE | 2021-08-27 21:15 | NUR ---
PT REFUSED ENOXAPRIN INJFECTION. INFORMED AND EDUCATED PT ON RISKS AND BENEFITS OF MEDICATION, CONTINUED TO REFUSE. STATES "SHOTS GIVES ME A HEADACHE, LAST NIGHT I COULD NOT SLEEP BECAUSE OF THAT AND I AM GOING HOME TOMORROW". no signs of acute distress.
[2021-08-27] MEDS: ZOLPIDEM 5 MG TABLET PO PRN (21:50)
[2021-08-28 05:52] VITALS: BP 115/52
--- NOTE | 2021-08-28 05:53 | NUR ---
[place] PO given for sleep. Patient slept through the night. Easily arousable. On room air saturating at 96%. No signs of acute distress. Call lights within reach. Safety measures maintained.
[2021-08-28] MEDS: PANTOPRAZOLE SODIUM 40 MG TABLET.DR PO SCH (06:13)
[2021-08-28] MEDS: PREGABALIN 25 MG CAPSULE PO SCH ×2 (06:13→15:06)
[2021-08-28 09:00] LABS: HEMATOCRIT 33.3 % (31.2-41.9); MEAN CORPUSCULAR HEMOGLOBIN 27.4 uug (24.7-32.8); MEAN CORPUSCULAR VOLUME 81.3 fL (75.5-95.3); PLATELET COUNT (AUTO) 241 K/uL (179-408)
[2021-08-28] MEDS: LIDOCAINE 5% PATCH TD SCH (09:06)
[2021-08-28] MEDS: ENSURE ENLIVE (VAN) 240 ML LIQUID PO SCH (09:06)
[2021-08-28] MEDS: LOSARTAN POTASSIUM 50 MG TABLET PO SCH (09:07)
[2021-08-28] MEDS: SERTRALINE HCL 100 MG TABLET PO SCH (09:07)
[2021-08-28] MEDS: prednisoLONE ACET 1% OPHT DROP 5 ML BOTTLE RIGHTEYE SCH (09:08)
[2021-08-28 09:09] LABS: BILIRUBIN,TOTAL 0.4 mg/dL (0.2-1.0); CREATININE 0.6 mg/dL (0.6-1.3); MAGNESIUM 2.1 mg/dL (1.8-2.4); PHOSPHOROUS 3.7 mg/dL (2.5-4.9); POTASSIUM 4.5 mmol/L (3.5-5.1); TOTAL PROTEIN, SERUM 6.6 g/dL (6.4-8.2)
[2021-08-28 12:01] VITALS: BP 123/76
[2021-08-28 16:09] VITALS: BP 133/46
--- NOTE | 2021-08-28 16:12 | NUR ---
patient discharged to [facility], report given to Mariaa SANTANA, Patient is stable, alert, oriented x4, no sob, resp even nonlabored, skin warm and dry to touch, belongings are accounted and signed, sent with patient. ID removed, no IV access on patient.
== END 2021-08-28 16:15 | DRG 551 ==
LOC: ER 14:03 → TELE3 21:52 → MEDSURG3 08-24 10:53
PROVIDERS: ADMIT Student in an Organized Health Care Education/Training Program; ATTEND Internal Medicine
DX: M50.10 Cervical disc disorder with radiculopathy, unspecified cervical region (principal); I50.33 Acute on chronic diastolic (congestive) heart failure; D68.59 Other primary thrombophilia; E22.2 Syndrome of inappropriate secretion of antidiuretic hormone; Z74.09 Other reduced mobility; H40.9 Unspecified glaucoma; D50.9 Iron deficiency anemia, unspecified; D69.6 Thrombocytopenia, unspecified; E78.5 Hyperlipidemia, unspecified; E86.1 Hypovolemia; I11.0 Hypertensive heart disease with heart failure; Z96.643 Presence of artificial hip joint, bilateral; R53.1 Weakness; M81.0 Age-related osteoporosis without current pathological fracture; R29.6 Repeated falls; M13.0 Polyarthritis, unspecified; M54.10 Radiculopathy, site unspecified; K21.9 Gastro-esophageal reflux disease without esophagitis; W18.30XA Fall on same level, unspecified, initial encounter; Y93.9 Activity, unspecified; Y92.129 Unspecified place in nursing home as the place of occurrence of the external cause; R26.89 Other abnormalities of gait and mobility
CPT/HCPCS: 36415; 70030-TC; 70450; 71045; 72125; 72192; 73502; 83735; 83930; 84100; 84443; 85025; 85730; 93005; 93880; 97161; A4663; G0378; J1650; J2650; J7030

== ENCOUNTER 2021-11-15 00:58 | Emergency (ER) | payer MEDICARE, OTHER ==
[~2021-11-15] VITALS: Ht 152.4 cm; Wt 56.7 kg
[~2021-11-15 00:58] MED LIST changes: -ALPR1TAB7 PO; +ASCO500T10 PO; -ASPI81TA31 PO; -BISA10SU61 RC; +CELE200C PO; +CHOL10005 PO; +DOCU100C36 PO; -ENOX40DI SQ; -EZET1TAB31 PO; -HYDR-3972 PO; +HYDR-3980 PO; +LACT-47 PO; -LATA2.5D15 EACHEYE; -LEVA0.6320 IH; -LOSA50TA39 PO; -METO25TA6 PO; +MULT-213 PO; -NA P133E RC; +NUTR113P PO; -OMEP20CA15 PO; -ONDA-104 PO; -OXYC-133 PO; +POLY17PO4 PO; +PREG50CA PO; -SERT100T PO; -TRAM50TA2 PO
--- NOTE | 2021-11-15 01:20 | NUR ---
Dr. David at bedside for MSE
--- NOTE | 2021-11-15 01:30 | NUR ---
Pt placed on bedpan
--- NOTE | 2021-11-15 02:05 | NUR ---
Pt down at CT
[2021-11-15] MEDS ORDERED: KETOROLAC TROMETHAMINE 15 MG INJ ONE (02:20)
--- NOTE | 2021-11-15 02:20 | NUR ---
Pt unable to lie flat for head CT and L Spine, given toradol IM. Tolerated medication well.
[2021-11-15] MEDS ORDERED: KETOROLAC TROMETHAMINE 15 MG INJ IM ONE (02:30)
[2021-11-15] MEDS ORDERED: MORPHINE SULFATE 2 MG/1 ML DISP.SYRIN ONE (02:53)
[2021-11-15] MEDS ORDERED: MORPHINE SULFATE 2 MG/1 ML DISP.SYRIN IM ONE (03:00)
--- NOTE | 2021-11-15 04:01 | NUR ---
called nicole nurse [employer] area supervisor at the [facility] pt to go back to the shelter by the same ambulance that brought her to [facility] which [facility]
--- NOTE | 2021-11-15 04:02 | NUR ---
call to [facility] spoke with Bela the eta is 0500 to take the pt back to her assisted.
--- NOTE | 2021-11-15 04:40 | NUR ---
Patient discharged to home in stable condition. Written and verbal after care instructions given. Patient verbalizes understanding of instructions. Stressed follow up or return to ER for worsening s/s. Pt in stable condition. Denies pain at this time.
[2021-11-15 05:03] VITALS: BP 154/77
== END 2021-11-15 05:05 ==
LOC: ER 01:18
DX: M25.562 Pain in left knee (principal); M25.561 Pain in right knee; M25.551 Pain in right hip; G89.29 Other chronic pain; Z91.81 History of falling; H40.9 Unspecified glaucoma; I10 Essential (primary) hypertension; R26.2 Difficulty in walking, not elsewhere classified; I25.10 Atherosclerotic heart disease of native coronary artery without angina pectoris; Z79.899 Other long term (current) drug therapy; M17.0 Bilateral primary osteoarthritis of knee
CPT/HCPCS: 72190; 73564 ×2; 96372 ×2; 99284; J1885; J2270; A4663